=== PATIENT | male | born 1985 | race Caucasian/White ===

== ENCOUNTER 2019-09-03 20:59 | Emergency (ER) | payer OTHER, SELFPAY ==
[2019-09-03 21:02] VITALS: BP 143/83; PULSE 67; RESP 20; TEMP 36.4; O2SAT 100
--- NOTE | 2019-09-03 21:27 | ED.HA ---
HPI - Headache General Chief Complaint: Headache Stated Complaint: Headache Time Seen by Provider: 09/03/19 21:27 Source: patient and RN notes reviewed Mode of arrival: ambulatory Limitations: no limitations History of Present Illness HPI Narrative: A 34 y/o male, with a hx of migraines, presents to the ED with a constant, throbbing, bitemporal ALEXANDER beginning a couple hours ago. He reports associated photophobia and nausea. He states that he took Naproxen but denies it alleviating his symptoms. He also denies any fever, cough, chills, sore throat, rhinorrhea, or vomiting. MD elicited complaint: headache Pertinent past history: migraines Onset (ago): hour(s) (a couple) Location: temporal (MAURILIO) Quality & Timing: throbbing Exacerbating factors: light Relieving factors: nothing Associated symptoms: nausea and photophobia Treatments prior to arrival: other (Naproxen) Related Data Home Medications Medication Instructions Recorded Confirmed No Home Medications 09/03/19 09/03/19 Allergies Allergy/AdvReac Type Severity Reaction Status Date / Time Penicillins Allergy Unknown Stopped Verified 09/03/19 21:04 Breathing Review of Systems Review of Systems: All systems reviewed & are unremarkable except as noted in HPI and below Constitutional: Constitutional: Denies chills and Denies fever(s) Eyes: Eyes: Reports photophobia ENT: Denies nasal discharge and Denies sore throat Respiratory: Respiratory: Denies cough Gastrointestinal: Gastrointestinal: Reports nausea and Denies vomiting Neurologic: Reports headache(s) (Bitemporal) PMFSH Past Medical History Medical History Asthma Hernia Hx of migraines Surgical History Surgical History H/O hernia repair Social History Social History (Updated 09/03/19 @ 21:38 by Adrian Marie) Smoking packs per day: 0.5 Smoking cigarettes per day: 10.0 Smoking status: Current every day smoker Tobacco type: cigarettes Gender identity (if verbalized by the patient): Male Exam Const: General: cooperative, no acute distress and alert Nutritional Appearance: well nourished Orientation/consciousness: patient oriented x3 Limitations: no limitations HENMT: Mouth: Yes lip normal and Yes moist mucous membranes Resp: Effort & Inspection: normal respiratory effort Auscultation: clear to auscultation bilaterally Cardio: Rate: regular rate Rhythm: regular rhythm GI: GI Palp: Yes Soft to palpation and No Tenderness to palpation present (GI) Auscultation: normal bowel sounds Skin: General skin exam: normal color Neuro: General: patient oriented x3 Cognition (Neuro): normal cognition Speech: normal speech Extrem: General: normal to inspection, full ROM and no clubbing, cyanosis or edema Psych: Mental Status: mental status grossly normal Affect: normal affect Attitude: cooperative Course Course Emergency Course: Patient feeling better after Benadryl and Reglan. Patient sleeping quietly. Will discharge home. Vital Signs Vital signs: Vital Signs Temperature 97.5 F L 09/03/19 21:02 Pulse Rate 67 09/03/19 21:02 Respiratory Rate 20 09/03/19 21:02 Blood Pressure 143/83 H 09/03/19 21:02 Pulse Oximetry 100 09/03/19 21:02 Temperature 97.5 F L 09/03/19 21:02 Pulse Rate 67 09/03/19 21:02 Respiratory Rate 20 09/03/19 21:02 Blood Pressure 143/83 H 09/03/19 21:02 Pulse Oximetry 100 09/03/19 21:02 Critical Care Time Critical Care Time Critical Care Time: No Discharge Plan Discharge Clinical Impression: Migraine headache Qualifiers: Migraine type: without aura Status migrainosus presence: without status migrainosus Intractability: not intractable Qualified Code(s): G43.009 - Migraine without aura, not intractable, without status migrainosus Patient Disposition: Home, Self-Care Condition: Stable Instructions: Migraine Headache (ED)
[2019-09-03] MEDS: METOCLOPRAMIDE HCL INJ 10 MG/2 ML VIAL IV PUSH (21:48)
[2019-09-03] MEDS: SODIUM CHLORIDE 0.9% IV 50 ML 999 ML (21:48)
[2019-09-03 23:53] VITALS: BP 132/80; PULSE 82; RESP 18; O2SAT 97
== END 2019-09-03 23:55 | disposition home or self-care (01) ==
PROVIDERS: Emergency Provider Emergency Medicine; PCP Internal Medicine Infectious Disease
DX: J45.909 Unspecified asthma, uncomplicated (principal); F17.210 Nicotine dependence, cigarettes, uncomplicated; G43.009 Migraine without aura, not intractable, without status migrainosus
CPT/HCPCS: 96374; 96375; 99284; J1200; J2765

== ENCOUNTER 2019-10-26 22:12 | Emergency (ER) | payer OTHER, SELFPAY ==
[2019-10-26 22:15] VITALS: BP 137/87; PULSE 78; RESP 19; TEMP 36.1; O2SAT 100
--- NOTE | 2019-10-26 23:13 | ED.HA ---
HPI - Headache General Chief Complaint: Headache Stated Complaint: headache Time Seen by Provider: 10/26/19 22:49 Source: patient Mode of arrival: ambulatory Limitations: no limitations History of Present Illness HPI Narrative: This patient is a 34 yo male who presents for evaluation of right frontal headache. Patient states he has long history of migraine headaches and today his headache is similar to previous. He reports he developed right frontal throbbing headache at 1 pm today. He has taken naproxen for his pain without relief. His headache is worsen with light. He denies associated nausea, vomiting, fever, cold symptoms. He was seen her in August for a similar headache. MD elicited complaint: headache Related Data Home Medications Medication Instructions Recorded Confirmed No Home Medications 09/03/19 09/03/19 Allergies Allergy/AdvReac Type Severity Reaction Status Date / Time Penicillins Allergy Unknown Stopped Verified 10/26/19 22:23 Breathing Review of Systems Review of Systems: All systems reviewed & are unremarkable except as noted in HPI and below Constitutional: Constitutional: Denies chills, Denies fever(s) and Denies weakness Eyes: Eyes: Reports photophobia ENT: Denies nasal congestion and Denies sore throat Gastrointestinal: Gastrointestinal: Denies nausea and Denies vomiting Neurologic: Reports headache(s) [facility] Past Medical History Medical History Asthma Hernia Hx of migraines Surgical History Surgical History H/O hernia repair Social History Social History (Updated 10/26/19 @ 23:13 by Hattie Contreras MD) Smoking packs per day: 0.5 Smoking cigarettes per day: 10.0 Smoking status: Current every day smoker Tobacco type: cigarettes Substance use type: marijuana Gender identity (if verbalized by the patient): Male Exam Const: General: alert Orientation/consciousness: patient oriented x3 HENMT: Head: atraumatic Ears: hearing grossly normal bilaterally, external ears normal and TM's normal bilaterally General nose exam: Normal external nose present and Normal nares present Face and sinus: normal facial exam, sinuses nontender and face symmetric Mouth: Yes Normal oral and palatal mucosa present, Yes lip normal and Yes tongue normal Throat: posterior oropharynx normal Eyes: Conjunctivae: conjunctivae normal EOM: EOMs intact bilaterally Other: pinpoint pupils Chest: Chest palpation & inspection: normal inspection of the chest Resp: Effort & Inspection: normal respiratory effort Auscultation: clear to auscultation bilaterally Cardio: Rate: regular rate Rhythm: regular rhythm Heart sounds: no murmurs Skin: General skin exam: normal color Rashes: no rashes Neuro: General: patient oriented x3 and moves all extremities Course Reevaluation(s) Reevaluation #1: Patient is sleeping . He was easily arousable and he states that his headache has gone away. Date: 10/27/19 Time: 00:47 Vital Signs Vital signs: Vital Signs Temperature 97.0 F L 10/26/19 22:15 Pulse Rate 78 10/26/19 22:15 Respiratory Rate 19 10/26/19 22:15 Blood Pressure 137/87 10/26/19 22:15 Pulse Oximetry 100 10/26/19 22:15 Temperature 97.2 F L 10/27/19 01:13 Pulse Rate 67 10/27/19 01:13 Respiratory Rate 16 10/27/19 01:13 Blood Pressure 143/71 H 10/27/19 01:13 Pulse Oximetry 97 10/27/19 01:13 MDM - Headache Lab Data Labs: Lab Results 10/27/19 Range/Units 00:31 Urine Opiates Screen Negative (Negative) Urine Methadone Screen Negative (Negative) Ur Barbiturates Screen Negative (Negative) Ur Phencyclidine Scrn Negative (Negative) Ur Amphetamine Screen Positive A (Negative) U Benzodiazepines Scrn Negative (Negative) Urine Cocaine Screen Negative (Negative) U Cannabinoids Screen Positive A (Nega
[2019-10-26] MEDS: METOCLOPRAMIDE HCL INJ 10 MG/2 ML VIAL IV PUSH (23:23)
[2019-10-26] MEDS: LACTATED RINGERS 1,000 ML 999 ML IV CONT (23:28)
[2019-10-26 23:42] VITALS: BP 129/69; PULSE 65; RESP 14; O2SAT 98
[2019-10-26 23:58] VITALS: TEMP 36.1
[2019-10-27 00:56] LABS: Barbiturate Screen Urine Negative (Negative); Benzodiazepines Screen Urine Negative (Negative)
[2019-10-27 01:04] LABS: Cannabinoid Screen Urine Positive (Negative); Cocaine Screen Urine Negative (Negative); Methadone Screen Urine Negative (Negative); Opiate Screen Urine Negative (Negative); Phencyclidine Screen Urine Negative (Negative)
[2019-10-27 01:13] VITALS: BP 143/71; PULSE 67; RESP 16; TEMP 36.2; O2SAT 97
[2019-10-27 01:25] LABS: Amphetamine Screen Urine Positive (Negative)
== END 2019-10-27 01:15 | disposition home or self-care (01) ==
PROVIDERS: Emergency Provider General Practice; PCP Internal Medicine Infectious Disease
DX: G44.209 Tension-type headache, unspecified, not intractable (principal); F17.210 Nicotine dependence, cigarettes, uncomplicated
CPT/HCPCS: 80307; 96361; 96374; 96375; 99284; J0131; J1200; J2765; J7120

== ENCOUNTER 2019-11-18 19:02 | Emergency (ER) | payer OTHER, SELFPAY ==
[2019-11-18 19:16] VITALS: BP 123/67; PULSE 86; RESP 16; TEMP 36.6
--- NOTE | 2019-11-18 19:25 | ED.DENTAL ---
HPI - Dental/Oral General Chief complaint: Dental/Oral Stated complaint: tooth pain Time Seen by Provider: 11/18/19 19:18 Source: patient and RN notes reviewed Mode of arrival: ambulatory Limitations: no limitations History of Present Illness HPI Narrative: Patient presents today complaining of right lower dental pain and gum swelling since yesterday. Reports this tooth broke off at the gumline a few months ago when he missed his last appointment with his dentist in August and has not rescheduled. Currently rates his pain 03/01 and has been taking naproxen with some relief. MD Complaint: tooth pain Related Data Allergies Allergy/AdvReac Type Severity Reaction Status Date / Time Penicillins Allergy Unknown Stopped Verified 10/26/19 22:23 Breathing Review of Systems Review of Systems: Narrative: CONSTITUTIONAL: Denies body aches, fever, chills, or sweats. EYES: Denies visual changes, redness, or discharge. ENT: Denies rhinorrhea, congestion, sore throat, or otalgia.+ tooth pain CARDIOVASCULAR: Denies chest pain, palpitations, or edema. RESPIRATORY: Denies cough or dyspnea. GASTROINTESTINAL: Denies abdominal pain, nausea, vomiting, or diarrhea. GENITOURINARY: Denies dysuria or hematuria. SKIN: Denies rash, itching, or wounds. MUSCULOSKELETAL: Denies back pain, joint pain, or myalgia. NEUROLOGIC: Denies headache, numbness, tingling, or weakness. PSYCH: Denies depression or anxiety. [facility] Social History Social History (Updated 10/26/19 @ 23:13 by Hattie Contreras MD) Smoking packs per day: 0.5 Smoking cigarettes per day: 10.0 Smoking status: Current every day smoker Tobacco type: cigarettes Substance use type: marijuana Gender identity (if verbalized by the patient): Male Exam Narrative: Exam Narrative: GENERAL: Well-appearing, well-nourished, and in no acute distress. HEAD: Normocephalic, atraumatic. EYES: EOMI. No redness or drainage. Conjunctivae normal. ENT: Mucous membranes pink and moist. Tooth #29 is broken off at the gumline and brown in color. Gross dental decay throughout. Mild swelling and erythema of the lower gingiva. Patient also has a ~4mm pendulous growth to the oral mucosa that is somewhat firm. States it has been present for a while . Instructed to have this evaluated by dentist as well. NECK: Normal AROM. CHEST: No respiratory distress. EXTREMITIES: Normal range of motion. No edema. SKIN: Warm, dry, no rash. Capillary refill normal. Normal skin turgor. NEURO: No focal deficits. Alert and oriented x3. Gait steady. PSYCH: Normal affect. No signs of depression or anxiety. Course Vital Signs Vital signs: Vital Signs Temperature 97.9 F 11/18/19 19:16 Pulse Rate 86 11/18/19 19:16 Respiratory Rate 16 11/18/19 19:16 Blood Pressure 123/67 11/18/19 19:16 Temperature 97.9 F 11/18/19 19:16 Pulse Rate 86 11/18/19 19:16 Respiratory Rate 16 11/18/19 19:16 Blood Pressure 123/67 11/18/19 19:16 Reviewed. Pt has been instructed to follow up with his PCP regarding his elevated blood pressure today. MDM - Dental/Oral Differential Diagnosis Differential diagnosis: Likely gingival abscess, dental caries, toothache, dental abscess and fracture of tooth Critical Care Time Critical Care Time Critical Care Time: No Discharge Plan Discharge Clinical Impression: Dental infection Patient Disposition: Home, Self-Care Condition: Stable Instructions: Antibiotic Form, Dental Abscess (ED) Additional Instructions: Take the clindamycin as prescribed until gone. Continue naproxen for pain. Follow-up with your dentist as soon as possible. Your blood pressure was elevated above 120/80 today at Urgent Care. This puts you above the threshold for follow up. Please schedule a followup visit with your personal physician as soon as possible, for further evaluation and treatment. Even blood pressure exceeding 120/80 may indicate pre-hypertension. Tung
== END 2019-11-18 19:34 | disposition home or self-care (01) ==
PROVIDERS: Emergency Provider Nurse Practitioner
DX: K04.7 Periapical abscess without sinus (principal); F17.210 Nicotine dependence, cigarettes, uncomplicated; R03.0 Elevated blood-pressure reading, without diagnosis of hypertension
CPT/HCPCS: 99213; G0463

== ENCOUNTER 2019-11-20 14:36 | Emergency (ER) | payer OTHER, SELFPAY ==
[2019-11-20 14:38] VITALS: BP 130/64; PULSE 97; RESP 18; TEMP 36.4; O2SAT 98
--- NOTE | 2019-11-20 14:45 | PC.NURSE ---
Pt has dental abscess to R lower jaw x 2 days. Pt went to UC and got abt but states he feels like the pain and abscess are not improving. Pt states he has body aches and abd pain. Pt is A&Ox4. Pt has swelling to R lower jaw.
--- NOTE | 2019-11-20 14:55 | ED.DENTAL ---
HPI - Dental/Oral General Chief complaint: Dental/Oral <Nain Christie PA-C - Last Filed: 11/20/19 15:01> Stated complaint: Tooth abscess <Nain Christie PA-C - Last Filed: 11/20/19 15:01> Time Seen by Provider: 11/20/19 14:40 <Nain Christie PA-C - Last Filed: 11/20/19 15:01> Source: patient <Nain Christie PA-C - Last Filed: 11/20/19 15:01> Mode of arrival: ambulatory <Nain Christie PA-C - Last Filed: 11/20/19 15:01> Limitations: no limitations <Nain Christie PA-C - Last Filed: 11/20/19 15:01> History of Present Illness HPI Narrative: Patient is a 34-year-old male who presents with dental pain and right-sided facial swelling patient notes gross dental decay has tried [id number] medications with minimal improvement patient denies any fever chills nausea vomiting or URI symptoms and is otherwise resting comfortably in the room in no distress upon arrival <Nain Christie PA-C - Last Filed: 11/20/19 15:01> Related Data Allergies/adverse reactions: Allergies Allergy/AdvReac Type Severity Reaction Status Date / Time Penicillins Allergy Unknown Stopped Verified 10/26/19 22:23 Breathing <Nain Christie PA-C - Last Filed: 11/20/19 15:01> Review of Systems Review of Systems: All systems reviewed & are unremarkable except as noted in HPI and below <Nain Christie PA-C - Last Filed: 11/20/19 15:01> [facility] Past Medical History Medical History: Medical History Asthma Hernia Hx of migraines <Nain Christie PA-C - Last Filed: 11/20/19 15:01> Surgical History Surgical History: Surgical History H/O hernia repair <Nain Christie PA-C - Last Filed: 11/20/19 15:01> Social History Social History: Social History Smoking packs per day: 0.5 Smoking cigarettes per day: 10.0 Smoking status: Current every day smoker Tobacco type: cigarettes Substance use type: marijuana Gender identity (if verbalized by the patient): Male <Nain Christie PA-C - Last Filed: 11/20/19 15:01> Exam Narrative: Exam Narrative: GENERAL: Well-appearing, well-nourished, and in no acute distress. HEAD: Normocephalic, atraumatic. EYES: PERRLA and EOMI. ENT: Nares clear, no rhinorrhea or epistaxis. Mucous membranes moist. Oropharynx without tonsillar hypertrophy exudate or other lesions. Gross dental decay. Slight swelling and tenderness along the right lateral gumline NECK: Supple. No adenopathy or masses. EXTREMITIES: Normal range of motion. No edema. SKIN: Warm, dry, no rash. NEURO: No focal deficits. Alert and oriented x3. PSYCH: Normal mood and affect. <Nain Christie PA-C - Last Filed: 11/20/19 15:01> Course Course Emergency Course: Patient in the room in no distress aware of case findings treatment plan and diagnosis agreeing to follow-up as directed with dentistry provided with reasons to return <Nain Christie PA-C - Last Filed: 11/20/19 15:01> Vital Signs Vital signs: Vital Signs Temperature 36.4 C 11/20/19 14:38 Pulse Rate 97 11/20/19 14:38 Respiratory Rate 18 11/20/19 14:38 Blood Pressure 130/64 11/20/19 14:38 Pulse Oximetry 98 11/20/19 14:38 Temperature 36.4 C 11/20/19 14:38 Pulse Rate 97 11/20/19 14:38 Respiratory Rate 18 11/20/19 14:38 Blood Pressure 130/64 11/20/19 14:38 Pulse Oximetry 98 11/20/19 14:38 <Nain Christie PA-C - Last Filed: 11/20/19 15:01> Vital Signs Temperature 36.4 C 11/20/19 14:38 Pulse Rate 97 11/20/19 14:38 Respiratory Rate 18 11/20/19 14:38 Blood Pressure 130/64 11/20/19 14:38 Pulse Oximetry 98 11/20/19 14:38 Temperature 36.4 C 11/20/19 14:38 Pulse Rate 97 11/20/19 14:38 Respiratory Rate 18 11/20/19 14:38 Blood Pressure
[2019-11-20] MEDS: IBUPROFEN 600 MG TABLET PO (15:23)
== END 2019-11-20 15:25 | disposition home or self-care (01) ==
PROVIDERS: Emergency Provider Emergency Medicine; PCP Internal Medicine Infectious Disease
DX: K04.7 Periapical abscess without sinus (principal); J45.909 Unspecified asthma, uncomplicated; F17.210 Nicotine dependence, cigarettes, uncomplicated
CPT/HCPCS: 41800; 99283; A9270

== ENCOUNTER 2019-11-24 19:30 | Emergency (ER) | payer OTHER, SELFPAY ==
[2019-11-24 19:32] VITALS: BP 131/76; PULSE 58; RESP 16; TEMP 36.3; O2SAT 99
--- NOTE | 2019-11-24 19:52 | ED.DENTAL ---
HPI - Dental/Oral General Chief complaint: Dental/Oral Stated complaint: i need my abcess tooth popped Time Seen by Provider: 11/24/19 19:45 History of Present Illness HPI Narrative: Patient presents emergency department from home for dental pain. Patient states that symptoms began approximately 1 week ago. He states he has a carious tooth in the right lower jaw patient was seen initially at the urgent care on 11/17 and placed on clindamycin 300 every 6 hours and came to the emergency department then on 11/20/2019 and was switched to clindamycin 150 mg 3 times a day. Patient states he is scheduled to see a dentist on November 28. He states he continues to have pain noted mild swelling in the jaw in this region. He denies any new new loose or avulsed teeth denies any fevers or chills headaches rhinorrhea sore throat or any other symptoms Related Data Allergies Allergy/AdvReac Type Severity Reaction Status Date / Time Penicillins Allergy Unknown Stopped Verified 11/24/19 19:35 Breathing Review of Systems Review of Systems: Narrative: Gen.: Denies fevers or chills HEENT: See HPI Neuro: Denies headache Skin: Denies rash Endo: Denies DM PMFSH Past Medical History Medical History Asthma Hernia Hx of migraines Social History Social History Smoking packs per day: 0.5 Smoking cigarettes per day: 10.0 Smoking status: Current every day smoker Tobacco type: cigarettes Substance use type: marijuana Gender identity (if verbalized by the patient): Female Exam Narrative: Exam Narrative: APPEARANCE: No acute distress, nontoxic, resting in bed HEENT: Normocephalic, atraumatic, TMs clear bilaterally, nares patent, oral mucosa moist, airway patent, tooth #28 is carious down to the gumline and tender to palpation mild erythema of the gum with no fluctuance no swelling of the jaw in this region overlying erythema floor the mouth is soft, no erythema the submandibular region Neck: Supple small right anterior lymphadenopathy in the region of the tooth no other lymphadenopathy noted RESPIRATORY: No respiratory distress MUSCULOSKELETAl: Moves all extremities. NEURO: Awake and alert. Following commands, speech normal, no focal deficits SKIN:: Warm, dry. Normal Color PSYCHIATRIC: Normal affect/mood Course Course Emergency Course: Discussed with patient results of workup and diagnosis. Discussed need for follow-up with primary care, proper use of medication, and reasons to return to the emergency department. Patient understands and agrees to current treatment plan Vital Signs Vital signs: Vital Signs Temperature 97.3 F L 11/24/19 19:32 Pulse Rate 58 L 11/24/19 19:32 Respiratory Rate 16 11/24/19 19:32 Blood Pressure 131/76 11/24/19 19:32 Pulse Oximetry 99 11/24/19 19:32 Temperature 97.3 F L 11/24/19 19:32 Pulse Rate 58 L 11/24/19 19:32 Respiratory Rate 16 11/24/19 19:32 Blood Pressure 131/76 11/24/19 19:32 Pulse Oximetry 99 11/24/19 19:32 Discharge Plan Discharge Clinical Impression: Dental abscess Patient Disposition: Home, Self-Care Condition: Stable Instructions: Antibiotic Form, Dental Abscess (ED) Prescriptions: New clindamycin HCl 300 mg capsule 300 mg PO Q6H Qty: 28 RF: 0 No Action clindamycin HCl 300 mg capsule 300 mg PO Q6H 10 Days Qty: 40 RF: 0 clindamycin HCl 150 mg capsule 150 mg PO Q8H 10 Days Qty: 30 RF: 0 chlorhexidine gluconate [Peridex] 0.12 % mouthwash 15 ml BUCCAL BID Qty: 1500 RF: 0 ibuprofen [IBU] 600 mg tablet 600 mg PO QID PRN (Reason: fever or pain) Qty: 7 RF: 0 Follow-up/Referrals: [facility] [Outside] - 1 Day [facility] [Outside] - 1 Day KourtneyWanda M.D. [Primary Care Provider] - Stand Alone Forms: Work/School Release IP Time of Disposition: 20:01
[2019-11-24] MEDS: CLINDAMYCIN HCL 150 MG CAP 300 MG PO (20:07)
== END 2019-11-24 20:09 | disposition home or self-care (01) ==
LOC: ANHED 19:55
PROVIDERS: Emergency Provider Emergency Medicine; PCP Internal Medicine Infectious Disease
DX: K04.7 Periapical abscess without sinus (principal); J45.909 Unspecified asthma, uncomplicated; F17.210 Nicotine dependence, cigarettes, uncomplicated
CPT/HCPCS: 99283; A9270

== ENCOUNTER 2020-07-24 21:56 | Emergency (ER) | payer OTHER, SELFPAY ==
[2020-07-24 22:00] VITALS: BP 139/84; PULSE 66; RESP 14; TEMP 36.3; O2SAT 98
--- NOTE | 2020-07-24 22:14 | PC.NURSE ---
patient brought back to ED room 6 with c/o migraine ALEXANDER. see initial note. no change in condition since triage done. resting on stretcher. lights off. SL inserted. waiting for further orders from .
--- NOTE | 2020-07-24 22:44 | ED.GENADULT ---
HPI - General Adult General Chief complaint: Headache Stated complaint: headache Time Seen by Provider: 07/24/20 22:12 Source: patient History of Present Illness HPI narrative: Patient is a 35 y/o male complaining of left temporal headache starting 8-9 hours ago. He describes his headache as a pressure and rates it as 10/10. He states that light makes his headache worse. He took Ibuprofen which did did not help. He has some nausea, but no vomiting. He has no focal weakness or numbness. Related Data Allergies Allergy/AdvReac Type Severity Reaction Status Date / Time Penicillins Allergy Unknown Stopped Verified 07/24/20 22:02 Breathing Review of Systems Constitutional: Constitutional: Denies chills, Denies fever(s), Reports headache(s) and Denies weakness Eyes: Eyes: Denies blurry vision ENT: Reports headache(s) and Denies neck pain Cardiovascular: Cardiovascular: Denies chest pain and Denies dyspnea Respiratory: Respiratory: Denies cough and Denies dyspnea Gastrointestinal: Gastrointestinal: Denies abdominal pain, Denies diarrhea, Reports nausea and Denies vomiting Genitourinary: Genitourinary: Denies hematuria and Denies dysuria Musculoskeletal: Musculoskeletal: Denies back pain and Denies neck pain Neurologic: Reports headache(s) and Denies weakness PMFSH Past Medical History Medical History (Updated 07/24/20 @ 23:59 by Rosa Reyes MD) Asthma Hernia Hx of migraines Surgical History Surgical History H/O hernia repair Social History Social History Smoking packs per day: 0.5 Smoking cigarettes per day: 10.0 Smoking status: Current every day smoker Tobacco type: cigarettes Substance use type: marijuana Gender identity (if verbalized by the patient): Male Exam Const: General: no acute distress and well developed Orientation/consciousness: oriented to person, oriented to place, oriented to time and patient oriented x3 HENMT: Head: normocephalic Ears: external ears normal General nose exam: Normal external nose present Eyes: General: appearance normal, both eyes and all related structures Conjunctivae: conjunctivae normal Neck: Neck: normal visual inspection and full ROM Chest: Chest palpation & inspection: normal inspection of the chest and no tenderness Resp: Effort & Inspection: normal respiratory effort Auscultation: clear to auscultation bilaterally Cardio: Rate: regular rate Rhythm: regular rhythm GI: GI Palp: No abdominal tenderness and Yes Soft to palpation Skin: General skin exam: normal color and turgor normal Neuro: General: oriented to person, oriented to place, oriented to time and patient oriented x3 Cranial nerves: Yes CN's II-XII intact bilaterally Cognition (Neuro): normal cognition Speech: normal speech Motor exam (neuro): 5/5 motor strength present throughout Sensory Exam: normal sensation Coordination: [id number] test normal and [id number] test normal Extrem: General: normal to inspection, full ROM and no pedal edema Psych: Appearance: grossly normal Mental Status: mental status grossly normal Affect: normal affect Course Reevaluation(s) Reevaluation #1: Rechecked. Patient feels better and rates his pain as 3/10. Date: 07/24/20 Time: 23:58 Vital Signs Vital signs: Vital Signs Temperature 36.3 C L 07/24/20 22:00 Pulse Rate 66 07/24/20 22:00 Respiratory Rate 14 07/24/20 22:00 Blood Pressure 139/84 07/24/20 22:00 Pulse Oximetry 98 07/24/20 22:00 Temperature 36.3 C L 07/24/20 22:00 Pulse Rate 68 07/24/20 23:48 Respiratory Rate 18 07/24/20 23:48 Blood Pressure 106/62 07/24/20 23:48 Pulse Oximetry 98 07/24/20 23:48 Medical Decision Making Vital Signs Vital Signs: Vital Signs Temperature 36.3 C L 07/24/20 22:00 Pulse Rate 66 07/24/20 22:00 Respiratory Rate 14 07/24/20 22:00 Blood P
[2020-07-24] MEDS: diphenhydrAMINE HCl INJ 50 MG/ML VIAL 25 MG IV PUSH (22:50)
[2020-07-24] MEDS: KETOROLAC 30 MG/ML VIAL (*BKC) IV PUSH (22:51)
[2020-07-24] MEDS: SODIUM CHLORIDE 0.9% IV 1,000 ML 999 ML IV CONT (22:51)
[2020-07-24] MEDS: METOCLOPRAMIDE HCL 10 MG TABLET PO (22:51)
[2020-07-24 22:59] LABS: Basophils Absolute Auto 0.1 K/mm3 (0.0-0.1); Basophils Percent Auto 0.8 % (0.2-1.2); Eosinophils Absolute Auto 0.5 K/mm3 (0-0.3); Eosinophils Percent Auto 4.4 % (0-4.4); Hematocrit 42.6 % (42.0-52.0); Hemoglobin 14.3 g/dL (14.0-18.0); Immature Granulocyte Absolute 0.05 K/mm3 (0.00-0.031); Immature Granulocyte Percent A 0.5 % (0-0.5); Immature Platelet Fraction Pct 8.5 % (0.9-11.2); Lymphocytes Absolute Auto 1.08 K/mm3 (0.9-3.2); Lymphocytes Percent Auto 9.8 % (18.3-44.2); Mean Corpuscular HGB Conc 33.6 g/dl (32-36); Mean Corpuscular Hemoglobin 31.8 pg (26-34); Mean Corpuscular Volume 94.7 fl (80-100); Mean Platelet Volume 11.4 fl (7.4-10.4); Monocytes Absolute Auto 0.5 K/mm3 (0.1-0.6); Monocytes Percent Auto 4.2 % (2.6-8.5); Neutrophils Absolute Auto 8.9 K/mm3 (1.3-6.7); Neutrophils Percent Auto 80.3 % (45.5-73.1); Platelet Count Result 218 k/mm3 (150-375); Red Cell Distribution Width 12.2 % (11.5-14.5); White Blood Count 11.1 K/mm3 (4.5-10.0)
[2020-07-24] MEDS: METOCLOPRAMIDE HCL 10 MG TABLET (23:02)
[2020-07-24 23:48] VITALS: BP 106/62; PULSE 68; RESP 18; O2SAT 98
[2020-07-24 23:49] LABS: Anion Gap 4 mmol/L (8-16); Blood Urea Nitrogen 13 mg/dL (9-20); Carbon Dioxide 29 mmol/L (22-30); Chloride 104 mmol/L (98-107); Estimated CRCL calculation 111 ml/min; Estimated Glomerular Filt Rate > 60; Glucose 147 mg/dL (75-110); Potassium 4.9 mmol/L (3.4-5.0); Sodium 137 mmol/L (137-145)
== END 2020-07-25 00:11 | disposition home or self-care (01) ==
PROVIDERS: Emergency Provider Emergency Medicine; PCP Internal Medicine Infectious Disease
DX: G43.909 Migraine, unspecified, not intractable, without status migrainosus (principal); J45.909 Unspecified asthma, uncomplicated; F17.210 Nicotine dependence, cigarettes, uncomplicated
CPT/HCPCS: 36415; 80048; 85025; 85055; 96361; 96374; 96375; 99284; A9270; J1200; J1885; J7030

== ENCOUNTER 2020-08-15 09:39 | Emergency (ER) | payer OTHER, SELFPAY ==
[2020-08-15 09:46] VITALS: BP 130/86; PULSE 88; RESP 18; TEMP 37.2; O2SAT 100
--- NOTE | 2020-08-15 10:09 | ED.GENADULT ---
HPI - General Adult General Chief complaint: Headache Stated complaint: Headache Time Seen by Provider: 08/15/20 09:44 Source: patient Mode of arrival: ambulatory Limitations: no limitations History of Present Illness HPI narrative: Patient presents to the emergency department with chief complaint of pain to his left mosque that began this morning. Patient states he took [id number] ibuprofen without relief of his symptoms. Patient states that he does typically suffer from migraines at present in the temporal regions along with nausea and photophobia which are the same as he is experiencing now. Patient denies any head trauma any changes in caffeine usage, neurological deficits, chest pain, shortness of breath or any other abnormal symptoms. Patient states that this is typical of his migraines and is nowhere near the worst of his life however he desires relief. Related Data Home Medications Medication Instructions Recorded Confirmed No Home Medications 08/15/20 08/15/20 Allergies Allergy/AdvReac Type Severity Reaction Status Date / Time Penicillins Allergy Unknown Unknown Verified 08/15/20 09:52 Review of Systems Review of Systems: Narrative: CONSTITUTIONAL: Denies fever, chills, or sweats. EYES: Denies visual changes, redness, or discharge. ENT: Denies rhinorrhea, congestion, sore throat, or otalgia. CARDIOVASCULAR: Denies chest pain, palpitations, or edema. RESPIRATORY: Denies cough or dyspnea. GASTROINTESTINAL: Reports nausea denies abdominal pain, vomiting, or diarrhea. GENITOURINARY: Denies dysuria or hematuria. SKIN: Denies rash or itching. MUSCULOSKELETAL: Denies back pain, joint pain, or myalgia. NEUROLOGIC: Reports headache and photophobia denies numbness, dizziness, or weakness. PSYCHIATRIC: Denies anxiety or depression. [facility] Past Medical History Medical History (Updated 08/15/20 @ 12:03 by Selena Pérez PA-C) Asthma Hernia Hx of migraines Surgical History Surgical History H/O hernia repair Social History Social History Smoking packs per day: 0.5 Smoking cigarettes per day: 10.0 Smoking status: Current every day smoker Tobacco type: cigarettes Substance use type: marijuana Gender identity (if verbalized by the patient): Male Exam Narrative: Exam Narrative: GENERAL: Well-appearing, well-nourished, and in no acute distress. HEAD: Normocephalic, atraumatic. EYES: PERRLA and EOMI. ENT: Nares clear, no rhinorrhea or epistaxis. Mucous membranes moist. Oropharynx without tonsillar hypertrophy exudate or other lesions. Bilateral TMs pearly sesay nonbulging CHEST: Clear to auscultation. No respiratory distress. No wheezes rales or rhonchi EXTREMITIES: Normal range of motion. No edema. SKIN: Warm, dry, no rash. NEURO: No focal deficits. Alert and oriented x3. Patient able to follow commands. No obvious visual disturbances noted. Range of motion intact in all extremities. PSYCH: Normal mood and affect. Course Vital Signs Vital signs: Vital Signs Temperature 98.9 F 08/15/20 09:46 Pulse Rate 18 L 08/15/20 09:46 Respiratory Rate 18 08/15/20 09:46 Blood Pressure 130/86 08/15/20 09:46 Pulse Oximetry 100 08/15/20 09:46 Temperature 98.9 F 08/15/20 09:46 Pulse Rate 18 L 08/15/20 09:46 Respiratory Rate 18 08/15/20 09:46 Blood Pressure 130/86 08/15/20 09:46 Pulse Oximetry 100 08/15/20 09:46 Medical Decision Making MDM Narrative Medical decision making narrative: Patient has been able to rest comfortably in his room. He states he is feeling resolved and ready to go. Still neurologically intact. Vitals and labs stable. Patient instructed to go home and rest. To follow up with PCP. Return to ER if any emergent symptoms. Patient declines work note. Vital Signs Vital Signs: Vital Signs Temperature 98.9 F 08/15/20 09:46 Pulse Rate 18 L
[2020-08-15 10:18] LABS: Basophils Absolute Auto 0.1 K/mm3 (0.0-0.1); Basophils Percent Auto 1.3 % (0.2-1.2); Eosinophils Absolute Auto 0.6 K/mm3 (0-0.3); Eosinophils Percent Auto 8.3 % (0-4.4); Hematocrit 40.7 % (42.0-52.0); Hemoglobin 13.4 g/dL (14.0-18.0); Immature Granulocyte Absolute 0.02 K/mm3 (0.00-0.031); Immature Granulocyte Percent A 0.3 % (0-0.5); Lymphocytes Absolute Auto 1.44 K/mm3 (0.9-3.2); Lymphocytes Percent Auto 18.9 % (18.3-44.2); Mean Corpuscular HGB Conc 32.9 g/dl (32-36); Mean Corpuscular Hemoglobin 31.2 pg (26-34); Mean Corpuscular Volume 94.7 fl (80-100); Mean Platelet Volume 10.2 fl (7.4-10.4); Monocytes Absolute Auto 0.5 K/mm3 (0.1-0.6); Monocytes Percent Auto 6.4 % (2.6-8.5); Neutrophils Absolute Auto 4.9 K/mm3 (1.3-6.7); Neutrophils Percent Auto 64.8 % (45.5-73.1); Platelet Count Result 253 k/mm3 (150-375); Red Cell Distribution Width 12.1 % (11.5-14.5); White Blood Count 7.6 K/mm3 (4.5-10.0)
[2020-08-15 10:36] LABS: Alanine Aminotransferase 18 U/L (4-50); Albumin Level 3.8 g/dL (3.5-5.1); Alkaline Phosphatase 54 U/L (38-126); Anion Gap 5 mmol/L (8-16); Aspartate Amino Transferase 21 U/L (17-59); Bilirubin,Total 0.3 mg/dL (0.2-1.3); Blood Urea Nitrogen 13 mg/dL (9-20); Calcium 8.8 mg/dL (8.4-10.2); Carbon Dioxide 30 mmol/L (22-30); Chloride 105 mmol/L (98-107); Estimated CRCL calculation 99 ml/min; Estimated Glomerular Filt Rate > 60; Glucose 110 mg/dL (75-110); Sodium 140 mmol/L (137-145)
[2020-08-15] MEDS: KETOROLAC 15 MG/ML VIAL (*BKC) IV PUSH (10:46)
[2020-08-15] MEDS: SODIUM CHLORIDE 0.9% IV 1,000 ML 999 ML IV CONT (10:46)
[2020-08-15] MEDS: diphenhydrAMINE HCl INJ 50 MG/ML VIAL 25 MG IV PUSH (10:47)
[2020-08-15] MEDS: DEXAMETHASONE SOD PHOS INJ 4 MG/ML VIAL 10 MG IV PUSH (10:49)
--- NOTE | 2020-08-15 11:15 | PC.NURSE ---
Report to CARMINA Stephens, to continue care.
[2020-08-15 12:27] VITALS: BP 132/78; PULSE 76; RESP 18; O2SAT 99
== END 2020-08-15 12:36 | disposition home or self-care (01) ==
PROVIDERS: Physician Assistant; Emergency Provider Emergency Medicine; PCP Internal Medicine Infectious Disease
DX: R51.9 Headache, unspecified (principal); F17.210 Nicotine dependence, cigarettes, uncomplicated; J45.909 Unspecified asthma, uncomplicated
CPT/HCPCS: 36415; 80053; 85025; 96361; 96374; 96375; 99284; J1100; J1200; J1885; J7030

== ENCOUNTER 2020-08-22 04:15 | Emergency (ER) | payer OTHER, SELFPAY ==
[2020-08-22 04:19] VITALS: BP 140/65; PULSE 73; RESP 20; TEMP 36.7; O2SAT 98
--- NOTE | 2020-08-22 04:31 | ED.HA ---
HPI - Headache General Chief Complaint: Headache Stated Complaint: Migraine Time Seen by Provider: 08/22/20 04:29 Source: patient Mode of arrival: ambulatory Limitations: no limitations History of Present Illness HPI Narrative: Patient is a 35-year-old male complaining of migraine headache, generalized, 7 out of 10, throbbing, nonradiating started yesterday. Patient states that he has a history of migraine and this is his typical migraine headache. Patient was seen here last week for the same complaints. Patient denies any speech or visual disturbance, weakness, numbness, unsteady gait, neck stiffness or fever. Patient denies any nausea or vomiting. Related Data Home Medications Medication Instructions Recorded Confirmed No Home Medications 08/15/20 08/15/20 Allergies Allergy/AdvReac Type Severity Reaction Status Date / Time Penicillins Allergy Unknown Unknown Verified 08/15/20 09:52 Review of Systems Review of Systems: All systems reviewed & are unremarkable except as noted in HPI and below Constitutional: Constitutional: Denies body ache(s), Denies chills, Denies excessive sweating, Denies fatigue, Denies fever(s), Denies headache(s), Denies lethargy, Denies malaise, Denies weakness and Denies weight loss Eyes: Eyes: Denies blurry vision, Denies change in vision and Denies loss of vision ENT: Denies dizziness, Denies ear discharge, Denies headache(s), Denies lip swelling, Denies epistaxis, Denies nasal congestion, Denies neck pain, Denies throat swelling and Denies tongue swelling Cardiovascular: Cardiovascular: Denies chest pain, Denies chest pain at rest, Denies chest pain with activity, Denies diaphoresis, Denies rapid heart rate, Denies edema, Denies irregular heart rhythm, Denies lightheadedness, Denies palpitations, Denies dyspnea and Denies dyspnea on exertion Respiratory: Respiratory: Denies chest congestion, Denies cough, Denies hemoptysis, Denies dyspnea and Denies dyspnea on exertion Gastrointestinal: Gastrointestinal: Denies abdominal pain, Denies melena, Denies hematochezia, Denies diarrhea, Denies nausea, Denies vomiting and Denies hematemesis Musculoskeletal: Musculoskeletal: Denies abnormal gait, Denies deformity, Denies joint swelling, Denies limited range of motion, Denies neck pain and Denies numbness Neurologic: Denies Abnormal speech present, Denies abnormal gait, Denies confusion, Denies dizziness, Denies focal weakness, Denies loss of vision, Denies numbness, Denies Other visual disturbances, Denies Sensory deficit (Neuro) and Denies weakness Psychiatric: Psychiatric: Denies confusion, Denies depression, Denies auditory hallucinations, Denies homicidal ideation and Denies suicidal ideation Endocrine: Endocrine: Denies cold intolerance, Denies excessive sweating, Denies fatigue, Denies heat intolerance and Denies palpitations Hematologic/Lymphatic: Hematologic/Lymphatic: Denies easy bleeding and Denies easy bruising Allergic/Immunologic: Allergic/Immunologic: Denies lip swelling, Denies throat swelling and Denies tongue swelling PMFSH Past Medical History Medical History (Updated 08/22/20 @ 04:34 by William Hale MD) Asthma Hernia Hx of migraines Surgical History Surgical History H/O hernia repair Social History Social History Smoking packs per day: 0.5 Smoking cigarettes per day: 10.0 Smoking status: Current every day smoker Tobacco type: cigarettes Substance use type: marijuana Gender identity (if verbalized by the patient): Male Exam Const: General: cooperative, healthy appearing, comfortable, no acute distress, well developed, alert and awake; No confusion Orientation/consciousness: oriented to person, oriented to place, oriented to time, patient oriented x3 and No confusion Limitations: no limitations HENMT: Head: normal to inspection, normoce
[2020-08-22] MEDS: KETOROLAC 30 MG/ML VIAL (*BKC) IM (05:03)
[2020-08-22] MEDS: PROMETHAZINE HCL 25 MG/ML AMPUL IM (05:03)
== END 2020-08-22 06:26 | disposition home or self-care (01) ==
PROVIDERS: Emergency Provider Emergency Medicine; PCP Internal Medicine Infectious Disease
DX: G43.009 Migraine without aura, not intractable, without status migrainosus (principal); J45.909 Unspecified asthma, uncomplicated; F17.210 Nicotine dependence, cigarettes, uncomplicated
CPT/HCPCS: 96372; 99284; J1885; J2550

== ENCOUNTER 2020-09-16 20:40 | Emergency (ER) | payer OTHER, SELFPAY ==
[2020-09-16 21:05] VITALS: BP 124/71; PULSE 80; RESP 20; TEMP 36.6; O2SAT 98
--- NOTE | 2020-09-16 22:01 | ED.DENTAL ---
HPI - Dental/Oral General Chief complaint: Dental/Oral Stated complaint: Tooth pain Time Seen by Provider: 09/16/20 21:53 Source: patient Mode of arrival: ambulatory Limitations: no limitations History of Present Illness HPI Narrative: This is a 35 year old male with history of poor dentition and asthma who presents for evaluation of left upper dental pain. He states he developed pain yesterday. He reports his left cheek feels warm and he reports burning pain. He states it feels swollen. He took ibuprofen for his pain this morning, but his pain returned tonight. He denies nausea, vomiting, fever or difficulty breathing. He reports it has been several months since he has taken antibiotics. He also reports he missed his last dentist appointment so he will need to make another appointment. Location: Tooth # ([id number]) Related Data Allergies Allergy/AdvReac Type Severity Reaction Status Date / Time Penicillins Allergy Unknown Unknown Verified 08/15/20 09:52 Review of Systems Review of Systems: All systems reviewed & are unremarkable except as noted in HPI and below PMFSH Past Medical History Medical History (Updated 09/17/20 @ 00:00 by Umair Bustamante) Asthma Hernia Hx of migraines Surgical History Surgical History H/O hernia repair Social History Social History Smoking packs per day: 0.5 Smoking cigarettes per day: 10.0 Smoking status: Current every day smoker Tobacco type: cigarettes Substance use type: marijuana Gender identity (if verbalized by the patient): Male Exam Const: General: no acute distress and alert Orientation/consciousness: patient oriented x3 HENMT: Head: normocephalic and atraumatic Face and sinus: face symmetric Mouth: Yes lip normal, Yes tongue normal and Yes moist mucous membranes Teeth and gingiva: caries, poor dentition and other (no gum swelling or sign drainable abscess) Resp: Effort & Inspection: normal respiratory effort and no retractions Auscultation: clear to auscultation bilaterally Cardio: Rate: regular rate Rhythm: regular rhythm Heart sounds: no murmurs Skin: General skin exam: normal color Rashes: no rashes Neuro: General: patient oriented x3 and moves all extremities Psych: Mental Status: mental status grossly normal Affect: normal affect Course Reevaluation(s) Reevaluation #1: I discussed with patient that plan to discharge with antibiotics and he will need to follow up with dentist. Date: 09/16/20 Time: 22:06 Vital Signs Vital signs: Vital Signs Temperature 97.8 F 09/16/20 21:05 Pulse Rate 80 09/16/20 21:05 Respiratory Rate 20 09/16/20 21:05 Blood Pressure 124/71 09/16/20 21:05 Pulse Oximetry 98 09/16/20 21:05 Temperature 97.8 F 09/16/20 21:05 Pulse Rate 80 09/16/20 21:05 Respiratory Rate 20 09/16/20 21:05 Blood Pressure 124/71 09/16/20 21:05 Pulse Oximetry 98 09/16/20 21:05 Discharge Plan Discharge Clinical Impression: Dental abscess, Dental caries Patient Disposition: Home, Self-Care Condition: Stable Instructions: Antibiotic Form, Dental Abscess (ED) Additional Instructions: Please call a dentist to make an appointment. You can try [facility] at [phone] to make an appointment. Prescriptions: New clindamycin HCl 150 mg capsule 450 mg PO Q8H 10 Days Qty: 90 RF: 0 chlorhexidine gluconate 0.12 % mouthwash 15 ml buccal DAILY Qty: 1500 RF: 0 Follow-up/Referrals: Kourtney,Trina Muñoz [Primary Care Provider] - Stand Alone Forms: Work/School Release IP
[2020-09-16] MEDS: IBUPROFEN 400 MG TABLET 800 MG PO (22:40)
[2020-09-16] MEDS: CLINDAMYCIN HCL 150 MG CAP 450 MG PO (22:40)
== END 2020-09-16 22:40 | disposition home or self-care (01) ==
PROVIDERS: Emergency Provider General Practice; PCP Internal Medicine Infectious Disease
DX: K04.7 Periapical abscess without sinus (principal); K02.9 Dental caries, unspecified; J45.909 Unspecified asthma, uncomplicated; F17.210 Nicotine dependence, cigarettes, uncomplicated
CPT/HCPCS: 99283; A9270

== ENCOUNTER 2020-11-23 02:16 | Emergency (ER) | payer OTHER, SELFPAY ==
[2020-11-23 02:21] VITALS: BP 110/76; PULSE 62; RESP 18; TEMP 36.6; O2SAT 98
--- NOTE | 2020-11-23 02:59 | ED.GENADULT ---
HPI - General Adult General Chief complaint: Headache Stated complaint: headache Time Seen by Provider: 11/23/20 02:55 History of Present Illness HPI narrative: Patient is a 35-year-old gentleman who presents the emergency department with chief complaint of migraine headache. Patient reports he has history of migraines reports that he gets headaches that require visits to the emergency department reports that he started having one this morning around 3 AM. The patient states this is his typical migraine reports that is not improved by anything reports is worsened by light sound and movement. Patient states that this is his typical migraine reports that is unchanged from previous episodes. Related Data Home Medications Medication Instructions Recorded Confirmed No Home Medications 11/23/20 11/23/20 Allergies Allergy/AdvReac Type Severity Reaction Status Date / Time Penicillins Allergy Unknown Unknown Verified 11/23/20 02:24 Review of Systems Review of Systems: Narrative: A 10 system review of systems was completed on the patient and is negative except for what is stated in the HPI. Nursing and ancillary documentation was reviewed. [facility] Past Medical History Medical History (Updated 11/23/20 @ 03:01 by Roderick Short MD) Asthma Hernia Hx of migraines Surgical History Surgical History H/O hernia repair Social History Social History Smoking packs per day: 0.5 Smoking cigarettes per day: 10.0 Smoking status: Current every day smoker Tobacco type: cigarettes Substance use type: marijuana Gender identity (if verbalized by the patient): Male Exam Narrative: Exam Narrative: GENERAL: Well-appearing, well-nourished, and in no acute distress. HEAD: Normocephalic, atraumatic. EYES: PERRLA and EOMI. ENT: Nares clear, no rhinorrhea or epistaxis. Mucous membranes moist. NECK: Supple. CHEST: Clear to auscultation. No respiratory distress. HEART: Regular rate and rhythm. No murmur heard. Normal peripheral pulses. ABDOMEN: Soft, nontender, nondistended, normal active bowel sounds. EXTREMITIES: Normal range of motion. No edema. SKIN: Warm, dry, no rash. NEURO: No focal deficits. Alert and oriented x3. PSYCH: Normal mood and affect. Course Course Emergency Course: Patient is sleeping comfortably in no acute distress Vital Signs Vital signs: Vital Signs Temperature 36.6 C 11/23/20 02:21 Pulse Rate 62 11/23/20 02:21 Respiratory Rate 18 11/23/20 02:21 Blood Pressure 110/76 11/23/20 02:21 Pulse Oximetry 98 11/23/20 02:21 Temperature 36.6 C 11/23/20 02:21 Pulse Rate 62 11/23/20 02:21 Respiratory Rate 18 11/23/20 02:21 Blood Pressure 110/76 11/23/20 02:21 Pulse Oximetry 98 11/23/20 02:21 Medical Decision Making Vital Signs Vital Signs: Vital Signs Temperature 36.6 C 11/23/20 02:21 Pulse Rate 62 11/23/20 02:21 Respiratory Rate 18 11/23/20 02:21 Blood Pressure 110/76 11/23/20 02:21 Pulse Oximetry 98 11/23/20 02:21 Temperature 36.6 C 11/23/20 02:21 Pulse Rate 62 11/23/20 02:21 Respiratory Rate 18 11/23/20 02:21 Blood Pressure 110/76 11/23/20 02:21 Pulse Oximetry 98 11/23/20 02:21 Discharge Plan Discharge Clinical Impression: Migraine Qualifiers: Migraine type: unspecified Status migrainosus presence: without status migrainosus Intractability: not intractable Qualified Code(s): G43.909 - Migraine, unspecified, not intractable, without status migrainosus Headache Qualifiers: Headache type: unspecified Headache chronicity pattern: unspecified pattern Intractability: not intractable Qualified Code(s): R51.9 - Headache, unspecified Patient Disposition: Home, Self-Care Condition: Stable Instructions: Antibiotic Form, Migraine Headache (ED), Acute Headache (ED) Prescription
[2020-11-23] MEDS: KETOROLAC (*BKC) 60 MG/2 ML VIAL IM (03:19)
[2020-11-23] MEDS: PROCHLORPERAZINE EDISYLATE 10 MG/2 ML VIAL IM (03:19)
[2020-11-23] MEDS: diphenhydrAMINE HCl INJ 50 MG/ML VIAL IM (03:20)
--- NOTE | 2020-11-23 03:38 | PC.NURSE ---
pt presents to ED with complaints of headache that onset yesterday afternoon at approx 1500. Pt states she took 800mg ibuprofen with no relief. Pt complains of light sensitivity and is resting on cart in its lowest position with lights dimmed for comfort and call button and personal items within reach. Pt denies chest pain, sob, nvd, fever and chills. Pt noted to be alert and oriented x4 and in no obvious distress. Pt advised to press call button for assistance.
--- NOTE | 2020-11-23 04:01 | PC.NURSE ---
pt on cart resting and states that headache has subsided and denies all pain and discomfort at this time. Vitals are stable and pt in no obvious distress at this time.
[2020-11-23 04:02] VITALS: BP 105/56; PULSE 71; RESP 13; O2SAT 96
--- NOTE | 2020-11-23 04:12 | PC.NURSE ---
Report given to Kim. Kimball to send pt to floor.
--- NOTE | 2020-11-23 04:15 | PC.NURSE ---
Pt dc home alert, stable and in no obvious distress.
== END 2020-11-23 04:15 | disposition home or self-care (01) ==
PROVIDERS: Emergency Provider Emergency Medicine; PCP Internal Medicine Infectious Disease
DX: G43.909 Migraine, unspecified, not intractable, without status migrainosus (principal); J45.909 Unspecified asthma, uncomplicated; F17.210 Nicotine dependence, cigarettes, uncomplicated
CPT/HCPCS: 96372; 99284; J0780; J1200; J1885

== ENCOUNTER 2020-12-09 22:12 | Emergency (ER) | payer OTHER, SELFPAY ==
[2020-12-09 22:17] VITALS: BP 110/51; PULSE 89; RESP 18; TEMP 36.2; O2SAT 96
--- NOTE | 2020-12-10 00:41 | ED.GENADULT ---
HPI - General Adult General Chief complaint: Upper Respiratory Infection Stated complaint: sinus issues/body aches Time Seen by Provider: 12/10/20 00:00 History of Present Illness HPI narrative: Patient is a 35-year-old male who presents ER with sinus congestion. Ongoing for 2 to 3 days. Associate with cough. Has been taking Flonase without relief. No fevers or chills or sweats. No ear pain. No known sick contacts. No loss of smell or taste. Related Data Allergies Allergy/AdvReac Type Severity Reaction Status Date / Time Penicillins Allergy Unknown Unknown Verified 12/09/20 22:12 Review of Systems Review of Systems: All systems reviewed & are unremarkable except as noted in HPI and below Constitutional: Constitutional: Denies chills and Denies fever(s) ENT: Denies dizziness, Reports nasal congestion and Denies sore throat Cardiovascular: Cardiovascular: Denies chest pain and Denies radiating jaw, neck or arm pain Respiratory: Respiratory: Reports cough, Denies dyspnea and Denies wheezing PMFSH Past Medical History Medical History (Updated 12/10/20 @ 00:43 by Corbin Chaudhary MD) Asthma Hernia Hx of migraines Surgical History Surgical History H/O hernia repair Social History Social History Smoking packs per day: 0.5 Smoking cigarettes per day: 10.0 Smoking status: Current every day smoker Tobacco type: cigarettes Substance use type: marijuana Gender identity (if verbalized by the patient): Male Exam Narrative: Exam Narrative: GENERAL: Well-appearing, well-nourished, and in no acute distress. HEAD: Normocephalic, atraumatic. ENT: Mucous membranes moist. Mild left maxillary sinus tenderness. Normal posterior oropharynx without uvular edema or tonsillar exudate/hypertrophy. NECK: Supple. CHEST: Clear to auscultation. No respiratory distress. HEART: Regular rate and rhythm. Normal peripheral pulses. EXTREMITIES: Normal range of motion. No edema. NEURO: Alert and oriented x3. PSYCH: Normal mood and affect. Course Course Emergency Course: Discussed treatment plan. Discharge home. Vital Signs Vital signs: Vital Signs Temperature 97.2 F L 12/09/20 22:17 Pulse Rate 89 12/09/20 22:17 Respiratory Rate 18 12/09/20 22:17 Blood Pressure 110/51 L 12/09/20 22:17 Pulse Oximetry 96 12/09/20 22:17 Temperature 97.2 F L 12/09/20 22:17 Pulse Rate 89 12/09/20 22:17 Respiratory Rate 18 12/09/20 22:17 Blood Pressure 110/51 L 12/09/20 22:17 Pulse Oximetry 96 12/09/20 22:17 Medical Decision Making Vital Signs Vital Signs: Vital Signs Temperature 97.2 F L 12/09/20 22:17 Pulse Rate 89 12/09/20 22:17 Respiratory Rate 18 12/09/20 22:17 Blood Pressure 110/51 L 12/09/20 22:17 Pulse Oximetry 96 12/09/20 22:17 Temperature 97.2 F L 12/09/20 22:17 Pulse Rate 89 12/09/20 22:17 Respiratory Rate 18 12/09/20 22:17 Blood Pressure 110/51 L 12/09/20 22:17 Pulse Oximetry 96 12/09/20 22:17 Discharge Plan Discharge Clinical Impression: Upper respiratory infection Patient Disposition: Home, Self-Care Condition: Stable Instructions: Viral Syndrome (ED) Additional Instructions: Return the ER if you cannot breathe, you cannot swallow, you have chest pain or shortness of breath, you have additional concerns. Continue your home Flonase. Take nasal decongestants in addition. Prescriptions: New pseudoephedrine-guaifenesin [Mucus D] 60-600 mg tablet extended release 12 hr 1 tablet PO Q12H PRN (Reason: cold symptoms) Qty: 20 RF: 0 Follow-up/Referrals: Kourtney,Trina Muñoz [Primary Care Provider] - 1 Week Stand Alone Forms: Work/School Release IP
[2020-12-10 00:49] VITALS: BP 113/68; PULSE 72; RESP 16; TEMP 36.4; O2SAT 98
== END 2020-12-10 00:49 | disposition home or self-care (01) ==
PROVIDERS: Emergency Provider Emergency Medicine; PCP Internal Medicine Infectious Disease
DX: J06.9 Acute upper respiratory infection, unspecified (principal); F17.210 Nicotine dependence, cigarettes, uncomplicated; J45.909 Unspecified asthma, uncomplicated
CPT/HCPCS: 99283

== ENCOUNTER 2021-03-03 11:12 | Emergency (ER) | payer OTHER, SELFPAY ==
[2021-03-03 11:22] VITALS: BP 130/83; PULSE 67; RESP 20; TEMP 36.4; O2SAT 99
--- NOTE | 2021-03-03 13:27 | ED.NECK ---
HPI - Neck Pain/Injury General Chief Complaint: Neck Pain/Injury Stated Complaint: NECK PAIN/ALEXANDER Time Seen by Provider: 03/03/21 13:17 Source: patient Mode of arrival: ambulatory Limitations: no limitations History of Present Illness HPI Narrative: Patient is 35 years old white female complaining of neck pain bilaterally, upper back pain bilaterally after slipping on oil while fixing a transmission on the floor 1 month ago. Patient denies any loss of consciousness at that time, been complaining of intermittent upper back, neck pain causing occipital headache every now and then, got worse over the last 24 hours. Patient denies any fever, chills, nausea, vomiting, blurred vision, lightheadedness, dizziness, focal weakness or numbness or tingling. Patient is in hurry and would like some pain medication to go home right away. Declined any imaging at this time. Related Data Home Medications Medication Instructions Recorded Confirmed No Home Medications 03/03/21 03/03/21 Allergies Allergy/AdvReac Type Severity Reaction Status Date / Time Penicillins Allergy Unknown Unknown Verified 03/03/21 11:23 Review of Systems Review of Systems: CONSTITUTIONAL: Denies fever, chills, or sweats. EYES: Denies visual changes, redness, or discharge. ENT: Denies rhinorrhea, congestion, sore throat, or otalgia. CARDIOVASCULAR: Denies chest pain, palpitations, or edema. RESPIRATORY: Denies cough or dyspnea. GASTROINTESTINAL: Denies abdominal pain, nausea, vomiting, or diarrhea. GENITOURINARY: Denies dysuria or hematuria. SKIN: Denies rash or itching. MUSCULOSKELETAL: Neck pain NEUROLOGIC: Denies headache, numbness, or weakness. PSYCHIATRIC: Denies anxiety or depression. [facility] Past Medical History Medical History (Updated 03/03/21 @ 13:52 by Eden Kennedy MD) Asthma Hernia Hx of migraines Surgical History Surgical History H/O hernia repair Social History Social History Smoking packs per day: 0.5 Smoking cigarettes per day: 10.0 Smoking status: Current every day smoker Tobacco type: cigarettes Substance use type: marijuana Gender identity (if verbalized by the patient): Male Exam Narrative: General appearance: Well-developed, well-nourished Skin: Normal color Head: Normocephalic, nontraumatic Eyes: Clear conjunctiva ENT: Oropharynx normal, ears normal, nose normal Neck: Supple, nontender Chest and respiratory: Airway patent, no respiratory distress, no accessory muscle use Heart: Regular rate/rhythm Abdomen: Soft, nontender, no organomegaly, quiet bowel sounds Vascular: Normal peripheral pulses, normal capillary refill. Musculoskeletal: Diffuse neck tenderness, posteriorly, slight limited range of motion, no bruises, no deformity Neurologic: Alert and oriented ?3, [employer] is normal as tested, no gross motor deficit Course Course Emergency Course: Stable Vital Signs Vital signs: Vital Signs Temperature 36.4 C L 03/03/21 11:22 Pulse Rate 67 03/03/21 11:22 Respiratory Rate 20 03/03/21 11:22 Blood Pressure 130/83 03/03/21 11:22 Pulse Oximetry 99 03/03/21 11:22 Temperature 36.4 C L 03/03/21 11:22 Pulse Rate 67 03/03/21 11:22 Respiratory Rate 20 03/03/21 11:22 Blood Pressure 130/83 03/03/21 11:22 Pulse Oximetry 99 03/03/21 11:22 MDM - Neck Pain/Injury MDM Narrative Medical decision making narrative: Musculoskeletal pain is my concern. Patient declined any imaging at this time, have to go right away because have a lot to do today. Critical Care Time Critical Care Time Critical Care Time: No
--- NOTE | 2021-03-03 15:16 | PC.NURSE ---
Addendum entered by Juan Pablo Eastman RN 03/03/21 15:29: I attempted to reach patient three times by phone number in his chart to provide him with his discharge education and prescriptions. there was no answer and no voicemail prompt either. Original Note: at 1520 patient reported to this nurse that he was feeling better and that the Ice pack I had provided was helping his discomfort. He verbalized his intention to leave the ED because he was feeling better. At that time the EDP came and began to speak with the patient. The EDP printed this patient's discharge packet but when I went to the room to discharge the patient he and his visitor were gone. They left the ED before receiving discharge education and instructions as well as prescriptions and education/instructions for their use.
== END 2021-03-03 15:33 | disposition home or self-care (01) ==
PROVIDERS: Emergency Provider Emergency Medicine; PCP Internal Medicine Infectious Disease
DX: S16.1XXA Strain of muscle, fascia and tendon at neck level, initial encounter (principal); F17.210 Nicotine dependence, cigarettes, uncomplicated; Z87.09 Personal history of other diseases of the respiratory system; Z86.69 Personal history of other diseases of the nervous system and sense organs; W18.40XA Slipping, tripping and stumbling without falling, unspecified, initial encounter
CPT/HCPCS: 99283

== ENCOUNTER 2021-10-31 20:39 | Emergency (ER) | payer OTHER, SELFPAY ==
--- NOTE | ~2021-10-31 | XR_ITS ---
EXAMINATION: XR knee LT 3V DATE: 10/31/2021 23:08 INDICATION: Chronic left knee pain TECHNIQUE: Three views of the left knee were obtained. COMPARISON: None. FINDINGS: Alignment is normal. No fracture or osteochondral lesion. Joint spaces are normal with no e rosions. There is a small knee joint effusion. Soft tissues are unremarkable. IMPRESSION: 1. Small knee joint effusion without acute osseous abnormality. Reviewed, dictated and finalized at location A.
[2021-10-31 20:40] VITALS: PULSE 88; RESP 18; TEMP 37; O2SAT 98
[2021-10-31] MEDS: ACETAMINOPHEN 325 MG TABLET 650 MG PO (23:46)
--- NOTE | 2021-11-01 00:28 | ED.LOWEXIN ---
HPI - Extremity Injury (Lower) General Chief Complaint: Extremity Injury, Lower Stated Complaint: left knee pain x 5 months Time Seen by Provider: 10/31/21 22:54 History of Present Illness HPI Narrative: Patient states he started noticing some pain in his left knee about 5 months ago, denies any trauma to it, no numbness or tingling or weakness anywhere, he states he also has some neck pain when he woke up this morning and thinks he slept on it funny. Related Data Home Medications Medication Instructions Recorded Confirmed No Home Medications 03/03/21 03/03/21 Allergies Allergy/AdvReac Type Severity Reaction Status Date / Time Penicillins Allergy Unknown Unknown Verified 10/31/21 20:42 Review of Systems Review of Systems: All systems reviewed & are unremarkable except as noted in HPI and below PMFSH Past Medical History Medical History Asthma Hernia Hx of migraines Surgical History Surgical History H/O hernia repair Social History Social History Smoking packs per day: 0.5 Smoking cigarettes per day: 10.0 Smoking status: Current every day smoker Tobacco type: cigarettes Substance use type: marijuana Gender identity (if verbalized by the patient): Male Exam Narrative: EXAMINATION OF ORGAN SYSTEMS/BODY AREAS: Constitutional: Vital signs per nursing GENERAL:[No acute distress, non-toxic appearing.] HEAD: Normal with no signs of head trauma. EYES: EOMI, conjunctiva normal ENT: Hearing grossly intact NECK: Minimal tenderness left paraspinal no midline tenderness LUNGS: Nonlabored breathing. HEART: [Regular rate and rhythm] ABD: No distention EXT: Normal range of motion SKIN: Some abrasions to left leg NEURO: [Alert and oriented x 3. No gross focal sensory or strength deficits.] PSYCH: Normal affect Course Course Emergency Course: 36-year-old male presents with 5 months of chronic left knee pain without trauma, and some neck pain when he woke up, mostly stable, exam shows neurovascular intact, range of motion normal, some tenderness palpation around the lateral knee, no neuro deficits and doubt any CVA/carotid etiology regarding his neck pain. I will obtain an x-ray but I doubt any fracture without trauma. By my interpretation no obvious fracture, he is given follow-up to orthopedics. Can return for any further issues. Vital Signs Vital signs: Vital Signs Temperature 98.6 F 10/31/21 20:40 Pulse Rate 88 10/31/21 20:40 Respiratory Rate 18 10/31/21 20:40 Pulse Oximetry 98 10/31/21 20:40 Temperature 98.6 F 10/31/21 20:40 Pulse Rate 88 10/31/21 20:40 Respiratory Rate 18 10/31/21 20:40 Pulse Oximetry 98 10/31/21 20:40 MDM - Extremity Injury (Lower) Imaging Data Attestation: I personally reviewed and interpreted this imaging study as follows: My impression: no acute fracture Discharge Plan Discharge Clinical Impression: Chronic knee pain Qualifiers: Laterality: left Qualified Code(s): M25.562 - Pain in left knee Patient Disposition: Home, Self-Care Condition: Stable Instructions: Antibiotic Form Prescriptions: No Action No Home Medications RF: 0 naproxen 500 mg tablet 500 mg PO BID PRN (Reason: pain) Qty: 14 RF: 0 cyclobenzaprine 10 mg tablet 10 mg PO TID PRN (Reason: muscle spasm) Qty: 20 RF: 0 Follow-up/Referrals: Kourtney,Stormy Muñoz. [Primary Care Provider] - Dom Napoles MD [Physician] -
== END 2021-11-01 00:56 | disposition home or self-care (01) ==
PROVIDERS: Emergency Provider Emergency Medicine; PCP Internal Medicine Infectious Disease
DX: M25.562 Pain in left knee (principal); F17.210 Nicotine dependence, cigarettes, uncomplicated
CPT/HCPCS: 73562; 99283; A9270

== ENCOUNTER 2022-06-01 01:37 | Inpatient (IN) | payer OTHER, SELFPAY ==
[2022-06-01] VITALS (17 sets, daily range): BP systolic 100–160; BP diastolic 60–91; PULSE 65–88; RESP 15–22; TEMP 36.2–36.8; O2SAT 95–100
--- NOTE | ~2022-06-01 | XR_ITS ---
EXAMINATION: XR retrograde pyelo w/stent LT DATE: 06/01/2022 8:15 ACADEMY EDUCATION DIRECTOR INDICATION: LEFT STONE . TECHNIQUE: 8 fluoroscopic images of the left abdomen and pelvis were obtained during left retrograde pyelography with stent placement performed by the surgeon. I was not present in the operating room. F luoroscopy exposure time was 28.3 seconds. DAP [id number] mGym2. COMPARISON: None FINDINGS: Cannulation of the left collecting system followed by contrast injection revealing mild caliectasis. No filling defect. Extensive displaced, proximal and terminates over the left renal pelvis, distal co il projects over the bladder. IMPRESSION: Fluoroscopic documentation of left retrograde pyelography with stent placement. Please refer to the o perative note for complete procedural details . Reviewed, dictated and finalized at location K. EMY EDUCATION DIRECTOR IMPRESSION: Fluoroscopic documentation of left retrograde pyelography with stent placement. Please refer to the operative note for complete procedural details .
--- NOTE | ~2022-06-01 | XR_ITS ---
EXAMINATION: XR abdomen/kub 1V DATE: 06/01/2022 07:34 INDICATION: Kidney stone. TECHNIQUE: A supine view of the abdomen on 2 radiographs was obtained. COMPARISON: CT abdomen and pelvis 06/01/2022 FINDINGS: There are no dilated loops of bowel. There is contrast in the renal collecting system. Ther e is mild left hydronephrosis and hydroureter. There is a phlebolith in left pelvis. IMPRESSION: 1. Mild left hydronephrosis and hydroureter. Reviewed, dictated and finalized at location A. CRANE OPERATOR
--- NOTE | ~2022-06-01 | CT_ITS ---
EXAMINATION: CT abdomen pelvis w con DATE: 06/01/2022 05:36 INDICATION: Left abdominal pain. TECHNIQUE: Computed tomography (CT) of the abdomen and pelvis was performed with 100 mL Omnipaque 350 intravenous contrast. Automated exposure control and iterative reconstruction technique were employe d. The dose-length product was 298.95 mGy-cm. COMPARISON: CT abdomen and pelvis 05/16/2019 FINDINGS: The visualized portions of the lung bases are clear without pneumonia or pleural effusion. The heart size is normal. No pericardial effusion. There is a 6 mm cyst in the liver. The gallbladder , spleen, pancreas, adrenal glands, and right kidney are normal. There is a delayed left-sided contra st nephrogram. There are two 2 mm stones in left kidney. There is mild left hydronephrosis and proxim al hydroureter. There is a 4 mm stone in proximal left ureter. There are no dilated loops of bowel. T he appendix is normal. There are no pathologically enlarged lymph nodes. There is no free intraperito feliberto fluid. There is mild lumbar spondylosis. IMPRESSION: 1. 4 mm stone in proximal left ureter with mild left hydronephrosis and proximal hydroureter. 2. Small nonobstructing left kidney stones. Reviewed, dictated and finalized at location A. INERY TEACHER IMPRESSION: 1. 4 mm stone in proximal left ureter with mild left hydronephrosis and proxima l hydroureter. 2. Small nonobstructing left kidney stones.
--- NOTE | ~2022-06-01 | XR_ITS ---
EXAMINATION: XR abdomen/kub 1V DATE: 06/02/2022 06:36 INDICATION: Left ureteral stone status post stent placement. TECHNIQUE: A supine view of the abdomen was obtained. COMPARISON: Abdomen radiographs 06/01/2022, CT abdomen and pelvis 06/01/2022 FINDINGS: There are no dilated loops of bowel. There are phleboliths in left pelvis. There is a left internal ureteral stent in expected position. There is an 8 x 3 mm stone in the left ureter at L4-L5. IMPRESSION: 1. 8 x 3 mm stone in left ureter at L4-L5 with left internal ureteral stent in expected position. Reviewed, dictated and finalized at location A. NILE CORRECTIONS OFFICER
--- NOTE | 2022-06-01 02:29 | PC.NURSE ---
Pt rolling on floor in waiting room, stating If i from this, I hope you have a big lawsuit . Pt educated on why he was sent out to waiting room, as there are no beds available in ED. Pt then requesting pain medication. Pt educated on need to be seen by provider before medication can be given. Pt ambulated with steady gait to triage room for blood draw and urine sample cup given.
[2022-06-01 02:33] LABS: Basophils Absolute Auto 0.2 K/mm3 (0.0-0.1); Basophils Percent Auto 0.6 % (0.2-1.2); Eosinophils Absolute Auto 0.2 K/mm3 (0-0.3); Eosinophils Percent Auto 0.7 % (0-4.4); Hematocrit 43.5 % (42.0-52.0); Hemoglobin 14.2 g/dL (14.0-18.0); Immature Granulocyte Absolute 0.12 K/mm3 (0.00-0.031); Immature Granulocyte Percent A 0.5 % (0-0.5); Lymphocytes Absolute Auto 1.57 K/mm3 (0.9-3.2); Lymphocytes Percent Auto 6.5 % (18.3-44.2); Mean Corpuscular HGB Conc 32.6 g/dl (32-36); Mean Corpuscular Hemoglobin 30.5 pg (26-34); Mean Corpuscular Volume 93.3 fl (80-100); Monocytes Absolute Auto 1.7 K/mm3 (0.1-0.6); Monocytes Percent Auto 7.1 % (2.6-8.5); Neutrophils Absolute Auto 20.4 K/mm3 (1.3-6.7); Neutrophils Percent Auto 84.6 % (45.5-73.1); Platelet Count Result 362 k/mm3 (150-375); Red Blood Count 4.66 M/mm3 (4.6-6.20); Red Cell Distribution Width 12.3 % (11.5-14.5); White Blood Count 24.1 K/mm3 (4.5-10.0)
[2022-06-01 02:43] LABS: Alanine Aminotransferase 26 U/L (6-50); Albumin Level 4.6 g/dL (3.5-5.1); Alkaline Phosphatase 109 U/L (38-126); Anion Gap 9 mmol/L (8-16); Aspartate Amino Transferase 25 U/L (17-59); Bilirubin,Total 0.6 mg/dL (0.2-1.3); Blood Urea Nitrogen 12 mg/dL (9-20); Calcium 10.3 mg/dL (8.4-10.2); Carbon Dioxide 28 mmol/L (22-30); Chloride 102 mmol/L (98-107); Estimated CRCL calculation 97 ml/min; Estimated Glomerular Filt Rate > 60; Glucose 137 mg/dL (65-110); Lipase 84 U/L (23-300); Potassium 3.7 mmol/L (3.4-5.0); Sodium 139 mmol/L (137-145)
[2022-06-01 04:50] LABS: Appearance Urine Clear (Clear); Bilirubin Urine Negative (Negative); Blood Urine 3+ (Negative); Color Urine Yellow (Yellow); Glucose Urine UA Negative (Negative); Ketones Urine Negative (Negative); Leukocyte Esterase Ur 1+ LEU/UL (Negative); Nitrate Urine Negative (Negative); Protein Urine 2+ mg/dL (Negative); Urobilinogen Urine 0.2 mg/dL (<2.0)
[2022-06-01 04:59] LABS: Bacteria Urine Trace /hpf; Mucus Urine Rare /lpf; Squamous Epithelial Cell Urine Few /hpf (Few); WBC Urine 31-50 /hpf
[2022-06-01] MEDS: SODIUM CHLORIDE 0.9% IV 1,000 ML 999 ML IV CONT (05:07)
[2022-06-01] MEDS: MORPHINE SULFATE (*CRX) 4 MG/ML INJ IV PUSH (05:07)
[2022-06-01 05:14] LABS: Add Urine Microscopic? YES
--- NOTE | 2022-06-01 06:14 | ED.ABDPAIN ---
HPI - Abdominal Pain General Chief Complaint: Abdominal Pain Stated Complaint: Abd pain x4 hours, Hx UC Time Seen by Provider: 06/01/22 04:43 History of Present Illness HPI narrative: Patient is a 37-year-old male who presents ER with sudden onset left-sided abdominal pain. Left upper quadrant. Radiates down towards his lower abdomen. Also radiates into his left back. Worse with movement. Reports urinary frequency and urgency. No dysuria. Denies fevers or chills but has had some hot sweats. He has waves of nausea. He has history of ulcerative colitis but is on no medication to control it. He is having no diarrhea. Denies history of kidney stones. Has found no alleviating factors for his pain Related Data Home Medications Medication Instructions Recorded Confirmed No Home Medications 03/03/21 03/03/21 Allergies Allergy/AdvReac Type Severity Reaction Status Date / Time Penicillins Allergy Unknown Unknown Verified 10/31/21 20:42 Review of Systems Review of Systems: All systems reviewed & are unremarkable except as noted in HPI and below Constitutional: Constitutional: Denies chills, Denies fatigue and Denies fever(s) Comments: Hot flashes ENT: Denies nasal congestion and Denies sore throat Cardiovascular: Cardiovascular: Denies chest pain, Denies rapid heart rate and Denies radiating jaw, neck or arm pain Respiratory: Respiratory: Denies cough and Denies dyspnea Gastrointestinal: Gastrointestinal: Reports abdominal pain, Denies diarrhea, Reports nausea and Denies vomiting Genitourinary: Genitourinary: Denies hematuria, Denies dysuria and Reports urinary frequency PMFSH Past Medical History Medical History (Updated 06/01/22 @ 07:13 by Corbin Chaudhary MD) Asthma Hernia Hx of migraines Surgical History Surgical History H/O hernia repair Social History Social History Smoking packs per day: 0.5 Smoking cigarettes per day: 10.0 Smoking status: Current every day smoker Tobacco type: cigarettes Substance use type: marijuana Gender identity (if verbalized by the patient): Male Exam Narrative: GENERAL: Uncomfortable-appearing, well-nourished, and in mild distress. HEAD: Normocephalic, atraumatic. EYES: PERRL and EOMI. NECK: Supple. CHEST: Clear to auscultation. No respiratory distress. HEART: Regular rate and rhythm. Normal peripheral pulses. ABDOMEN: Soft, nontender, nondistended. Mild CVA tenderness. EXTREMITIES: Normal range of motion. No edema. SKIN: Warm, dry, no rash. NEURO: Alert and oriented x3. PSYCH: Normal mood and affect. Course Course Emergency Course: Patient still with 6/10 pain after pain medication though he does look like he is feeling improved. Discussed case with urology. Patient will go to the OR for stent placement. Antibiotics ordered. Patient aware of diagnosis and treatment plan. Vital Signs Vital signs: Vital Signs Temperature 97.7 F 06/01/22 02:01 Pulse Rate 81 06/01/22 02:01 Respiratory Rate 22 H 06/01/22 02:01 Blood Pressure 134/80 06/01/22 02:01 Pulse Oximetry 100 06/01/22 02:01 Oxygen Delivery Room Air 06/01/22 02:01 Temperature 97.7 F 06/01/22 02:01 Pulse Rate 77 06/01/22 05:53 Respiratory Rate 16 06/01/22 05:53 Blood Pressure 121/78 06/01/22 05:53 Pulse Oximetry 100 06/01/22 05:53 Oxygen Delivery Room Air 06/01/22 02:01 MDM - Abdominal Pain Lab Data 06/01/22 02:27 06/01/22 02:27 Labs: Lab Results 06/01/22 06/01/22 06/01/22 Range/Units 02:27 02:27 04:36 WBC 24.1 H (4.5-10.0) K/mm3 RBC 4.66 (4.6-6.20) M/mm3 Hgb 14.2 (14.0-18.0) g/dL Hct 43.5 (42.0-52.0) % MCV 93.3 (80-100) fl MCH 30.5 (26-34) pg MCHC 32.6 (32-36) g/dl RDW 12.3 (11.5-14.5) % Plt Count 362 (150-375) k/mm3 MPV 10.0 (7.4-10.4) fl Im
[2022-06-01 06:44] LABS: Lactic Acid Reflex 0.9 mmol/L (0.7-2.0)
--- NOTE | 2022-06-01 08:09 | WPDHPUPDATE1 ---
History and Physical Update Update Date/Time: 06/01/22 08:09 History and Physical has been reviewed, including an updated exam of the patient. There are NO changes in the patient's condition. Risks, benefits, and alternatives have been discussed and questions answered. Patient agrees to proceed with procedure. Proceed with cystoscopy, left retrograde pyelogram, left ureteral stent placement. The stone will need to be addressed at a later point in time
--- NOTE | 2022-06-01 08:12 | PM.IMHP ---
H&P: HPI History of Present Illness Date/Time: 06/01/22 08:12 Chief Complaint: Obstructing left ureteral calculus with UTI and elevated white Narrative: 37-year-old male presents to the emergency room with significant left renal colic. He also describes feeling somewhat hot. Evaluation in emergency room revealed a 4-5 mm obstructing left ureteral stone. More impressively [place] [address]. He did have urinalysis that had 31-40 white cells present. Patient denies any prior history of stones. Will proceed with cysto left retrograde left stent placement at this time. Patient will be admitted for IV antibiotics and awaiting culture results. Will address the stone later point time. Review of Systems Review of Systems: All systems reviewed & are unremarkable except as noted in HPI and below PMFSH Past Medical History Medical History Asthma Hernia Hx of migraines Surgical History Surgical History H/O hernia repair Social History Social History Smoking packs per day: 0.5 Smoking cigarettes per day: 10.0 Smoking status: Current every day smoker Tobacco type: cigarettes Substance use type: marijuana Gender identity (if verbalized by the patient): Male Meds Home Medications and Allergies Home Medications Medication Instructions Recorded Confirmed Type No Home Medications 03/03/21 03/03/21 History cyclobenzaprine 10 mg tablet 10 mg PO TID PRN muscle spasm #20 03/03/21 Rx tabs naproxen 500 mg tablet 500 mg PO BID PRN pain #14 tabs 03/03/21 Rx Allergies Allergy/AdvReac Type Severity Reaction Status Date / Time Penicillins Allergy Unknown Unknown Verified 06/01/22 07:18 Vital Signs Vital Signs - 24 hr 06/01/22 02:01 06/01/22 04:35 06/01/22 05:53 Temperature 36.5 C Pulse Rate 81 72 77 Respiratory Rate 22 H 18 16 Blood Pressure 134/80 160/91 H 121/78 Pulse Oximetry 100 100 100 Oxygen Delivery Room Air 06/01/22 07:29 Temperature Pulse Rate 81 Respiratory Rate 18 Blood Pressure 133/90 Pulse Oximetry 100 Oxygen Delivery Exam Const: General: cooperative and comfortable HENMT: Head: normal to inspection Neck: Neck: normal visual inspection Chest: Chest palpation & inspection: normal inspection of the chest Resp: Effort & Inspection: normal respiratory effort GI: Inspection: normal to inspection Back/Spine/Pelvis: Back: no CVA tenderness H&P: Results Labs Labs: Short CBC 06/01/22 Range/Units 02:27 WBC 24.1 H (4.5-10.0) K/mm3 Hgb 14.2 (14.0-18.0) g/dL Hct 43.5 (42.0-52.0) % Plt Count 362 (150-375) k/mm3 BMP 06/01/22 02:27 Sodium 139 Potassium 3.7 Chloride 102 Carbon Dioxide 28 BUN 12 Creatinine 0.90 Glucose 137 H Calcium 10.3 H Liver Function 06/01/22 Range/Units 02:27 Total Bilirubin 0.6 (0.2-1.3) mg/dL AST 25 (17-59) U/L ALT 26 (6-50) U/L Alkaline Phosphatase 109 (38-126) U/L Albumin 4.6 (3.5-5.1) g/dL Urine 06/01/22 Range/Units 04:36 Urine Color Yellow (Yellow) Urine Appearance Clear (Clear) Urine pH 6.0 (5.0-9.0) Ur Specific [place] 1.020 (1.001-1.035) Urine Protein 2+ H (Negative) mg/dL Urine Glucose (UA) Negative (Negative) mg/dL Assessment and Plan Assessment and plan (1) Calculus, ureteral: Code(s): N20.1 - Calculus of ureter Status: Acute Assessment and Plan: Will plan on cysto left retrograde left stent placement given his concurrent UTI. Will address the stone at a later point time. (2) Acute UTI: Code(s): N39.0 - Urinary tract infection, site not specified Status: Acute Assessment and Plan: See above patient will be admitted for IV antibiotics postoperatively
--- NOTE | 2022-06-01 08:24 | WPDANESEPPF ---
Anes - Initial Pre Proc Eval Procedure: Operation Date: 06/01/22 08:00 Proposed Procedures p Cysto, RPG, Stone Ext, Stent Placement - Salvador Russ MD Date/Time: 06/01/22 08:24 Surgeon: Salvador Russ MD Pre Op Diagnosis: Kidney Stone Patient Data Age: 37 Gender: M Height: 1.75 m Weight: 81.8 kg Last Vital Signs Temp 36.5 C 06/01/22 02:01 Pulse 81 06/01/22 07:29 Resp 18 06/01/22 07:29 BP 133/90 06/01/22 07:29 Pulse Ox 100 06/01/22 07:29 O2 Del Method Room Air 06/01/22 02:01 Allergies Allergy/AdvReac Type Severity Reaction Status Date / Time Penicillins Allergy Unknown Unknown Verified 06/01/22 07:18 Home Medications Medication Instructions Recorded Confirmed Type No Home Medications 03/03/21 03/03/21 History cyclobenzaprine 10 mg tablet 10 mg PO TID PRN muscle spasm #20 03/03/21 Rx tabs naproxen 500 mg tablet 500 mg PO BID PRN pain #14 tabs 03/03/21 Rx Laboratory Tests 06/01/22 06/01/22 06/01/22 02:27 02:27 04:36 WBC 24.1 K/mm3 H K/mm3 (4.5-10.0) RBC 4.66 M/mm3 M/mm3 (4.6-6.20) Hgb 14.2 g/dL g/dL (14.0-18.0) Hct 43.5 % % (42.0-52.0) MCV 93.3 fl fl (80-100) MCH 30.5 pg pg (26-34) MCHC 32.6 g/dl g/dl (32-36) RDW 12.3 % % (11.5-14.5) Plt Count 362 k/mm3 k/mm3 (150-375) MPV 10.0 fl fl (7.4-10.4) Immature Gran % (Auto) 0.5 % % (0-0.5) Neut % (Auto) 84.6 % H % (45.5-73.1) Lymph % (Auto) 6.5 % L % (18.3-44.2) [place] % (Auto) 7.1 % % (2.6-8.5) Eos % (Auto) 0.7 % % (0-4.4) Baso % (Auto) 0.6 % % (0.2-1.2) Lymph # (Auto) 1.57 K/mm3 K/mm3 (0.9-3.2) [place] # (Auto) 1.7 K/mm3 H K/mm3 (0.1-0.6) Eos # (Auto) 0.2 K/mm3 K/mm3 (0-0.3) Baso # (Auto) 0.2 K/mm3 H K/mm3 (0.0-0.1) Abs Immat Gran (auto) 0.12 K/mm3 H K/mm3 (0.00-0.031) Absolute Neuts (auto) 20.4 K/mm3 H K/mm3 (1.3-6.7) Absolute Nucleated RBC 0.0 K/mm3 K/mm3 (0.0-0.012) Nucleated RBC % 0.0 % % (0.0-0.2) Sodium 139 mmol/L mmol/L (137-145) Potassium 3.7 mmol/L mmol/L (3.4-5.0) Chloride 102 mmol/L mmol/L (98-107) Carbon Dioxide 28 mmol/L mmol/L (22-30) Anion Gap 9 mmol/L mmol/L (8-16) BUN 12 mg/dL mg/dL (9-20) Creatinine 0.90 mg/dL mg/dL (0.7-1.3) Estim Creat Clear Calc 97 ml/min ml/min Estimated GFR > 60 (59 - ) Glucose 137 mg/dL H mg/dL (65-110) Lactic Acid Calcium 10.3 mg/dL H mg/dL (8.4-10.2) Total Bilirubin 0.6 mg/dL mg/dL (0.2-1.3) AST 25 U/L U/L (17-59) ALT 26 U/L U/L (6-50) Alkaline Phosphatase 109 U/L U/L (38-126) Total Protein 8.0 g/dL g/dL (6.3-8.2) Albumin 4.6 g/dL g/dL (3.5-5.1) Lipase 84 U/L U/L (23-300) Urine Color Yellow (Yellow) Urine Appearance Clear (Clear) Urine pH 6.0 (5.0-9.0) Ur Specific [place] 1.020 (1.001-1.035) Urine Protein 2+ mg/dL H mg/dL (Negative) Urine Glucose (UA) Negative mg/dL mg/dL (Negative) Urine Ketones Negative mg/dL mg/dL (Negative) Ur Blood (Man) 3+ H (Negative) Urine Nitrate Negative (Negative) Urine Bilirubin Negative (Negative) Urine Urobilinogen 0.2 mg/dL mg/dL (<2.0) Leukocyte Esterase Rfl 1+ ARLETH/UL H ARLETH/UL (Negative) Urine RBC 11-20 /hpf H /hpf (0-2) Urine WBC 31-50 /hpf H /hpf Ur Squamous Epith Cells Few /hpf /hpf (Few) Urine Bacteria Trace /hpf /hpf Urine Mucus Rare /lpf /lpf 06/01/22 06:22 WBC RBC Hgb Hct MCV
[2022-06-01] MEDS: LIDOCAINE HCL 2% GEL UROJET 10 ML PKG MUCOUS MEM (08:28)
--- NOTE | 2022-06-01 08:35 | P.OP_ITS ---
Procedure Note - Detailed Date of Procedure 06/01/22 Pre-op Diagnosis Kidney Stone Obstructing left ureteral stone with hydronephrosis Post-op Diagnosis Same (Meatal stenosis in addition) Procedure Performed Cystoscopy, left retrograde pyelogram, left ureteral stent placement, 4.8 [place] contour. Dilation of meatal stenosis Surgeon Salvador Russ MD Anesthesia General Description of Procedure Patient is taken to the operative suite and correctly identified. Once anesthesia was obtained was placed in dorsal lithotomy position and prepped and draped usual sterile fashion. The meatus would not allow placement of a 22 [place] scope. Meatus was then dilated up to 20 [place]. A 19 [place] scope was then placed. There were no urethral strictures. Prostate nonobstructing. The bladder itself has no tumors. Left ureteral orifice was cannulated with a [place] in a retrograde pyelogram was performed. I was unable to really visualize location of the stone on this pyelogram. We then went ahead and placed a 4.8 [place] contour stent with the proximal end coiled in the renal pelvis and the distal end of the bladder. Bladder was drained. 2% viscous lidocaine was inserted into the urethra patient is taken recovery stable condition. He will be admitted for IV antibiotics await cultures. Will address the stone later point time. Will obtain a KUB in the morning. Estimated Blood Loss 0 Drains Yes Packing No Pathology None sent Complications No immediate complications Condition Stable Disposition PACU
[2022-06-01] MEDS: LACTATED RINGERS 1,000 ML 30 ML IV CONT (08:40)
--- NOTE | 2022-06-01 13:12 | ADMGEN ---
This patient, Anastacio Delgadillo, was admitted to [facility] Room 301-01. Patient/family oriented to hospital policies and general routines including ID bracelet, bed and alarms, visiting hours, pain management, procedures, bathroom and other care routines, personal items, smoking policy, room service/diet, and visiting hours. Information on how to activate the Rapid Response Team has been discussed. Patient/Family are encouraged to report perceived risks to care and to ask questions if they do not understand what they are told or what they should do.
[2022-06-01] MEDS: DEXTROSE 5%/LACTATED RINGERS 1,000 ML 125 ML IV CONT (15:03)
[2022-06-01] MEDS: HYDROcodone/acetaminophen (*CRX) 5-325 MG TABLET 1 TAB PO (22:30)
[2022-06-01] MEDS: ONDANSETRON INJ 4 MG/2 ML VIAL IV PUSH (22:36)
[2022-06-02] VITALS (7 sets, daily range): BP systolic 89–115; BP diastolic 44–66; PULSE 103–117; RESP 14–18; TEMP 35.8–38.7; O2SAT 93–98
[2022-06-02] MEDS: DEXTROSE 5%/LACTATED RINGERS 1,000 ML 125 ML IV CONT ×2 (03:06→11:51)
[2022-06-02] MEDS: HYDROcodone/acetaminophen (*CRX) 5-325 MG TABLET 2 TAB PO ×2 (05:11→11:50)
[2022-06-02 07:19] LABS: Basophils Percent Auto 0.2 % (0.2-1.2); Eosinophils Percent Auto 0.1 % (0-4.4); Hematocrit 38.1 % (42.0-52.0); Hemoglobin 12.4 g/dL (14.0-18.0); Immature Granulocyte Absolute 0.09 K/mm3 (0.00-0.031); Immature Granulocyte Percent A 0.5 % (0-0.5); Lymphocytes Absolute Auto 0.65 K/mm3 (0.9-3.2); Lymphocytes Percent Auto 3.5 % (18.3-44.2); Mean Corpuscular HGB Conc 32.5 g/dl (32-36); Mean Corpuscular Hemoglobin 30.8 pg (26-34); Mean Corpuscular Volume 94.5 fl (80-100); Mean Platelet Volume 10.8 fl (7.4-10.4); Monocytes Absolute Auto 1.5 K/mm3 (0.1-0.6); Neutrophils Absolute Auto 16.5 K/mm3 (1.3-6.7); Neutrophils Percent Auto 87.7 % (45.5-73.1); Platelet Count Result 268 k/mm3 (150-375); Red Blood Count 4.03 M/mm3 (4.6-6.20); Red Cell Distribution Width 12.5 % (11.5-14.5); White Blood Count 18.8 K/mm3 (4.5-10.0)
--- NOTE | 2022-06-02 08:55 | WPDANESPN ---
Anes - Prog Note Post-Op Date/Time: 06/02/22 08:55 Cardiovascular status: normal Respiratory status: normal Airway patency: baseline Mental status: baseline Post-Op hydration status: normal Vital Signs: Last Vital Signs Temp 99.4 F 06/02/22 06:00 Pulse 117 H 06/02/22 06:00 Resp 18 06/02/22 06:00 BP 91/54 L 06/02/22 06:00 Pulse Ox 93 06/02/22 06:00 O2 Del Method Room Air 06/01/22 20:55 O2 Flow Rate 8 06/01/22 09:10 Pain Score (VAS): 0 I/O: Intake & Output 06/01/22 06/02/22 06/02/22 23:59 07:59 15:59 Intake Total 1450 Balance 1450 Laboratory Tests 06/01/22 02:27 06/02/22 06:00 WBC Pending RBC Pending Hgb Pending Hct Pending MCV Pending MCH Pending MCHC Pending RDW Pending Plt Count Pending MPV Pending Immature Gran % (Auto) Pending Neut % (Auto) Pending Lymph % (Auto) Pending [place] % (Auto) Pending Eos % (Auto) Pending Baso % (Auto) Pending Lymph # (Auto) Pending [place] # (Auto) Pending Eos # (Auto) Pending Baso # (Auto) Pending Abs Immat Gran (auto) Pending Absolute Neuts (auto) Pending Absolute Nucleated RBC Pending Nucleated RBC % Pending Post-procedural complaints: none Patient Feedback: Patient satisfied with anesthetic care.
--- NOTE | 2022-06-02 16:28 | WPDUROPN2 ---
Progress Note: A&P Assessment and Plan (1) Calculus, ureteral: Code(s): N20.1 - Calculus of ureter Status: Acute Assessment and Plan: KUB shows stone and stent, when infection resolves in 1-2 weeks, will plan to do a Left ESWL as an outpatient. He will need to f/u in the office in one week to repeat a urine culture prior to having his ESWL. (2) Acute UTI: Code(s): N39.0 - Urinary tract infection, site not specified Status: Acute Assessment and Plan: Urine Cultures pending, restart Ceftriaxone, will tailor antibiotics to culture results. WBC improving, still febrile intermittently, hypotensive, consult hospitalist if persistently hypotensive. (3) Nicotine dependence: Code(s): F17.200 - Nicotine dependence, unspecified, uncomplicated Status: Acute Assessment and Plan: Start Nicotine patch 21mg. Patient is trying to leave the floor to smoke. (4) Pain due to ureteral stent: Code(s): T83.84XA - Pain due to genitourinary prosthetic devices, implants and grafts, initial encounter Status: Acute Assessment and Plan: Start Levsin PRN for stent pain. Subjective Subjective Date/Time Seen: 06/02/22 16:28 POD #1 Cystoscopy, left retrograde pyelogram, left ureteral stent placement, 4.8 [place] contour.? Dilation of meatal stenosis. Patient has been intermittently febrile and c/o pain/bladder spasms as well as needing to go outside and smoke and he is requesting a nicotine patch. Urine Culture Pending, restarted Ceftriaxone, he received one dose in the ER and ceftriaxone per surgery protocol. He remains hypotensive and tachycardic. Post Op day: 1 Review of Systems Cardiovascular: Cardiovascular: Denies chest pain Respiratory: Respiratory: Denies no additional respiratory complaints Gastrointestinal: Gastrointestinal: Denies abdominal pain, Denies nausea and Denies vomiting Genitourinary: Genitourinary: Denies hematuria, Denies dysuria, Reports flank pain, Denies urinary frequency, Denies urinary hesitancy, Denies urinary incontinence and Denies urinary urgency Exam Const: General: cooperative and comfortable Resp: Effort & Inspection: normal respiratory effort Cardio: Rate: tachycardic GI: GI Palp: Yes Soft to palpation and No Tenderness to palpation present (GI) : General: Yes no CVA tenderness Back/Spine/Pelvis: Back: No CVA tenderness Extrem: Right lower extremity: no edema Left lower extremity: no edema Objective Data Vital Signs Vital Signs: Vital Signs - 24 hr 06/01/22 18:03 06/01/22 20:55 06/01/22 22:00 Temperature 98.2 F Pulse Rate 77 Respiratory Rate 17 Blood Pressure 100/63 Pulse Oximetry 98 Oxygen Delivery Room Air Room Air 06/02/22 06:00 06/02/22 14:00 06/02/22 14:01 Temperature 99.4 F 96.5 F L Pulse Rate 117 H 114 H Respiratory Rate 18 18 Blood Pressure 91/54 L 89/44 L 102/66 Pulse Oximetry 93 98 Oxygen Delivery Intake/Output Intake/Output: Intake & Output 05/30/22 05/31/22 06/01/22 06/02/22 23:59 23:59 23:59 23:59 Intake Total 3300 1444 Output Total 150 Balance 3150 1444 Meds/Results Medications: Active Medications Generic Name Dose Route Start Last Admin Trade Name Freq PRN Reason Stop Dose Admin Hydrocodone Bitart/Acetaminophen 1 tab 06/01/22 22:22 06/01/22 22:30 Hydrocodone/Acetaminophen (*Crx) 5-325 Mg Tablet PO 1 tab Q4H PRN Administration Pain Rated 1-3 Hydrocodone Bitart/Acetaminophen 2 tab 06/01/22 22:22 06/02/22 11:50 Hydrocodone/Acetaminophen (*Crx) 5-325 Mg Tablet PO 2 tab Q4H PRN Administration Pain Rated 4-6 Hyoscyamine 0.125 mg 06/02/22 16:22 Hyoscyamine Sulfate 0.125 Mg Tablet PO Q4H PRN Bladder Spasm Dextrose/Lactated Ringer's 1,000 mls @ 125 mls/hr 06/01/22 10:49 06/02/22 11:51 Dextrose 5%/Lactated Ringers IV CONT 125 mls/hr .Q8H BRANDY Administration Ceftriaxone Sodium/Dextrose 1
[2022-06-02] MEDS: HYDROcodone/acetaminophen (*CRX) 5-325 MG TABLET 1 TAB PO (20:10)
[2022-06-02] MEDS: ACETAMINOPHEN 500 MG TABLET 1000 MG PO (22:09)
[2022-06-03] MEDS: DEXTROSE 5%/LACTATED RINGERS 1,000 ML 125 ML IV CONT ×2 (00:08→17:16)
[2022-06-03] MEDS: NICOTINE (*PBKC) 21 MG PATCH 1 PATCH TRANSDERM (00:08)
[2022-06-03 06:00] VITALS: BP 132/80; PULSE 88; RESP 22; TEMP 37.5; O2SAT 97
[2022-06-03] MEDS: HYDROcodone/acetaminophen (*CRX) 5-325 MG TABLET 2 TAB PO ×2 (08:17→19:56)
[2022-06-03 08:56] LABS: Hematocrit 38.7 % (42.0-52.0); Hemoglobin 12.9 g/dL (14.0-18.0); Mean Corpuscular HGB Conc 33.3 g/dl (32-36); Mean Corpuscular Hemoglobin 31.1 pg (26-34); Mean Corpuscular Volume 93.3 fl (80-100); Mean Platelet Volume 10.4 fl (7.4-10.4); Platelet Count Result 204 k/mm3 (150-375); Red Blood Count 4.15 M/mm3 (4.6-6.20); Red Cell Distribution Width 12.6 % (11.5-14.5); White Blood Count 19.3 K/mm3 (4.5-10.0)
[2022-06-03 09:13] LABS: Anion Gap 4 mmol/L (8-16); Blood Urea Nitrogen 7 mg/dL (9-20); Calcium 8.2 mg/dL (8.4-10.2); Carbon Dioxide 28 mmol/L (22-30); Chloride 96 mmol/L (98-107); Estimated CRCL calculation 122 ml/min; Estimated Glomerular Filt Rate > 60; Glucose 123 mg/dL (65-110); Potassium 3.1 mmol/L (3.4-5.0); Sodium 128 mmol/L (137-145)
[2022-06-03 13:51] VITALS: BP 114/66; PULSE 79; RESP 16; TEMP 36.4; O2SAT 100
--- NOTE | 2022-06-03 18:27 | WPDUROPN2 ---
Progress Note: A&P Assessment and Plan (1) Calculus, ureteral: Code(s): N20.1 - Calculus of ureter Status: Acute Assessment and Plan: Visible on KUB, plan to do a left ESWL in a few weeks when infection resolves. (2) Acute UTI: Code(s): N39.0 - Urinary tract infection, site not specified Status: Acute Assessment and Plan: Culture grew Group B strep, Continue Ceftriaxone at this time, will change to an oral prior to discharge. Repeat labs in the am, if he remains 24 hours fever free and WBC improves as well as pain is under better control, we will plan to discharge home maybe tomorrow. Subjective Subjective Date/Time Seen: 06/03/22 18:27 POD #2 Cystoscopy, left retrograde pyelogram, left stent, dilation of urethral meatus. Patient continues to be febrile with a low grade fever. Blood pressure has stabilized. KUB shows left renal stone. Urine culture grew group Beta Strep. WBC did increase slightly to 19, although he continues to Ceftriaxone. Review of Systems Constitutional: Constitutional: Reports snoring Cardiovascular: Cardiovascular: Denies chest pain Respiratory: Respiratory: Reports no additional respiratory complaints Gastrointestinal: Gastrointestinal: Denies abdominal pain Genitourinary: Genitourinary: Denies hematuria, Denies dysuria, Denies flank pain, Denies urinary frequency, Denies urinary hesitancy, Denies urinary incontinence and Denies urinary urgency Exam Const: General: comfortable Resp: Effort & Inspection: normal respiratory effort Cardio: Rate: regular rate GI: GI Palp: Yes Soft to palpation and No Tenderness to palpation present (GI) : General: Yes no CVA tenderness Extrem: Right lower extremity: no edema Left lower extremity: no edema Objective Data Vital Signs Vital Signs: Vital Signs - 24 hr 06/02/22 22:09 06/02/22 23:39 06/02/22 22:00 Temperature 101.7 F H 99.7 F H 101.7 F H Pulse Rate 103 H Respiratory Rate 14 Blood Pressure 115/62 Pulse Oximetry 96 Oxygen Delivery 06/02/22 23:00 06/02/22 20:10 06/03/22 06:00 Temperature 99.7 F H 99.5 F Pulse Rate 88 Respiratory Rate 22 H Blood Pressure 132/80 Pulse Oximetry 97 Oxygen Delivery Room Air 06/03/22 08:00 06/03/22 13:51 Temperature 97.6 F Pulse Rate 79 Respiratory Rate 16 Blood Pressure 114/66 Pulse Oximetry 100 Oxygen Delivery Room Air Intake/Output Intake/Output: Intake & Output 05/31/22 06/01/22 06/02/22 06/03/22 23:59 23:59 23:59 23:59 Intake Total 3300 3294 2338 Output Total 150 350 Balance 3150 3294 1988 Meds/Results Medications: Active Medications Generic Name Dose Route Start Last Admin Trade Name Freq PRN Reason Stop Dose Admin Acetaminophen 650 mg 06/03/22 04:00 Acetaminophen 325 Mg Tablet PO Q6H PRN Mild Pain (1-3) or Fever Hydrocodone Bitart/Acetaminophen 1 tab 06/01/22 22:22 06/02/22 20:10 Hydrocodone/Acetaminophen (*Crx) 5-325 Mg Tablet PO 1 tab Q4H PRN Administration Pain Rated 1-3 Hydrocodone Bitart/Acetaminophen 2 tab 06/01/22 22:22 06/03/22 08:17 Hydrocodone/Acetaminophen (*Crx) 5-325 Mg Tablet PO 2 tab Q4H PRN Administration Pain Rated 4-6 Hyoscyamine 0.125 mg 06/02/22 16:22 Hyoscyamine Sulfate 0.125 Mg Tablet PO Q4H PRN Bladder Spasm Dextrose/Lactated Ringer's 1,000 mls @ 125 mls/hr 06/01/22 10:49 06/03/22 17:16 Dextrose 5%/Lactated Ringers IV CONT 125 mls/hr .Q8H BRANDY Administration Ceftriaxone Sodium/Dextrose 1 gm in 50 mls @ 100 mls/hr 06/02/22 18:00 06/03/22 17:45 Rocephin 1 Gm/D5w 50 Ml IVPB Infused Q24H BRANDY Infusion Naloxone HCl 0.1 mg 06/01/22 10:49 Naloxone Hcl 0.4 Mg/Ml Vial IV PUSH Q2M PRN Opiate Reversal Nicotine 1 patch 06/02/22 17:43 06/03/22 08:20 Nicotine (*Pbkc) 21 Mg Patch TRANSDERM Not Given QAM BRANDY Ondansetron HCl 4 mg 06/01/22 10:49 06/01/22 22:36
[2022-06-03 22:00] VITALS: BP 113/71; PULSE 104; RESP 18; TEMP 37.7; O2SAT 97
[2022-06-04 06:00] VITALS: BP 99/59; PULSE 83; RESP 16; TEMP 36.6; O2SAT 98
[2022-06-04 06:57] LABS: Hematocrit 38.5 % (42.0-52.0); Hemoglobin 12.8 g/dL (14.0-18.0); Mean Corpuscular HGB Conc 33.2 g/dl (32-36); Mean Corpuscular Hemoglobin 31.2 pg (26-34); Mean Corpuscular Volume 93.9 fl (80-100); Mean Platelet Volume 11.2 fl (7.4-10.4); Platelet Count Result 180 k/mm3 (150-375); Red Cell Distribution Width 12.3 % (11.5-14.5); White Blood Count 14.6 K/mm3 (4.5-10.0)
[2022-06-04 07:12] LABS: Anion Gap 5 mmol/L (8-16); Blood Urea Nitrogen 8 mg/dL (9-20); Calcium 8.2 mg/dL (8.4-10.2); Carbon Dioxide 30 mmol/L (22-30); Chloride 98 mmol/L (98-107); Estimated CRCL calculation 108 ml/min; Estimated Glomerular Filt Rate > 60; Glucose 101 mg/dL (65-110); Potassium 3.2 mmol/L (3.4-5.0); Sodium 133 mmol/L (137-145)
[2022-06-04] MEDS: DEXTROSE 5%/LACTATED RINGERS 1,000 ML 125 ML IV CONT (12:14)
--- NOTE | 2022-06-04 16:03 | WPDUROPN2 ---
Progress Note: A&P Assessment and Plan (1) Acute UTI: Code(s): N39.0 - Urinary tract infection, site not specified Status: Acute Assessment and Plan: Culture grew Group B strep, responding to Ceftriaxone, per Discussion with [facility] pharmacy infectious disease specialist, we will discharge home today with Cefdinir BID 300mg x 10 days, then f/u in 1-2 weeks. to repeat a urine culture to prepare for left ESWL in the near future. (2) Calculus, ureteral: Code(s): N20.1 - Calculus of ureter Status: Acute Assessment and Plan: Needs Left ESWL in the near future once infection resolves. (3) Pain due to ureteral stent: Code(s): T83.84XA - Pain due to genitourinary prosthetic devices, implants and grafts, initial encounter Status: Acute Assessment and Plan: Tolearable Subjective Subjective Date/Time Seen: 06/04/22 16:03 POD #3 Cystoscopy , left stent, left retrograde pyelogram, dilation of meatal stenosis Patient doing better today, he is afebrile since yesterday morning. He denies pain from his stent and his urine culture grew Group B strep, however he appears to be responding to Ceftriaxone as his WBC has dropped to 14.6 from >19,000. Post Op day: 3 Review of Systems Respiratory: Respiratory: Reports no additional respiratory complaints Gastrointestinal: Gastrointestinal: Denies abdominal pain, Denies nausea and Denies vomiting Genitourinary: Genitourinary: Denies hematuria, Denies dysuria, Denies flank pain, Denies urinary frequency and Denies urinary hesitancy Exam Const: General: cooperative and comfortable Resp: Effort & Inspection: normal respiratory effort Cardio: Rate: regular rate GI: GI Palp: Yes Soft to palpation and No Tenderness to palpation present (GI) : General: Yes no CVA tenderness Back/Spine/Pelvis: Back: no CVA tenderness Extrem: Right lower extremity: no edema Left lower extremity: no edema Objective Data Vital Signs Vital Signs: Vital Signs - 24 hr 06/03/22 22:00 06/03/22 20:10 06/04/22 06:00 Temperature 100 F H 97.9 F Pulse Rate 104 H 83 Respiratory Rate 18 16 Blood Pressure 113/71 99/59 L Pulse Oximetry 97 98 Oxygen Delivery Room Air 06/04/22 08:00 Temperature Pulse Rate Respiratory Rate Blood Pressure Pulse Oximetry Oxygen Delivery Room Air Intake/Output Intake/Output: Intake & Output 06/01/22 06/02/22 06/03/22 06/04/22 23:59 23:59 23:59 23:59 Intake Total 3300 3294 2338 1000 Output Total 150 350 Balance 3150 3294 1988 1000 Meds/Results Radiology Results: ITS Impressions Abdomen/Pelvis CT 06/01/22 06:17 IMPRESSION: 1. 4 mm stone in proximal left ureter with mild left hydronephrosis and proximal hydroureter. 2. Small nonobstructing left kidney stones. Retrograde Pyelogram 06/01/22 14:38 IMPRESSION: Fluoroscopic documentation of left retrograde pyelography with stent placement. Please refer to the operative note for complete procedural details . Abdomen X-Ray 06/02/22 06:44 IMPRESSION: 1. 8 x 3 mm stone in left ureter at L4-L5 with left internal ureteral stent in expected position. Labs Labs: Laboratory Results - last 24 hr 06/04/22 06/04/22 06:08 06:08 WBC 14.6 H RBC 4.10 L Hgb 12.8 L Hct 38.5 L MCV 93.9 MCH 31.2 MCHC 33.2 RDW 12.3 Plt Count 180 MPV 11.2 H Sodium 133 L Potassium 3.2 L Chloride 98 Carbon Dioxide 30 Anion Gap 5 L BUN 8 L Creatinine 0.80 Estim Creat Clear Calc 108 Estimated GFR > 60 Glucose 101 Calcium 8.2 L
--- NOTE | 2022-06-04 16:25 | PM.DS ---
DS: Admitting Diagnosis Discharge Date 06/04/22 Admitting Diagnosis Left Ureteral Stone DS: Discharge Diagnosis Discharge Diagnosis Plan Left Ureteral Stone/UTI DS: Summary Hospital Course Reason for hospitalization: Left Ureteral Stone Hospital Course: The patient was admitted for a left ureteral stone and a UTI as well as fever upon initial presentation to the ER on 06/01/22. He then underwent a Cystoscopy, left retrograde pyelogram, left ureteral stent placement, 4.8 [place] contour dilation of meatal stenosis with Dr. Russ later that afternoon and was admitted for further observation of infection and pain control awaiting urine cultures. He remained febrile with left flank pain through yesterday. His urine culture grew Group B strep, which seems to be responsive to the IV Ceftriaxone as his WBC is improved today and he has been afebrile for >24 hours. His pain has also resolved as of today. He will be discharged home today with Cefdinir to treat his infection to follow up in 1-2 weeks for a repeat urine culture and to discuss the need for his left ESWL in the near future as his left ureteral stone is visible on KUB. He can resume regular activity, diet but he has no home medications to resume. Time spent discussing smoking cessation with patient: more than 10 minutes Status at Discharge Functional status at discharge: independent ambulation Time Spent with Patient Time attestation: Total time spent providing and/or coordinating discharge services: Time spent: Greater than 30 minutes Exam Const: General: cooperative and comfortable Resp: Effort & Inspection: normal respiratory effort Cardio: Rate: regular rate GI: GI Palp: Yes Soft to palpation and No Tenderness to palpation present (GI) : General: Yes no CVA tenderness Extrem: Right lower extremity: no edema Left lower extremity: no edema DS: Data Data Completed and Pending Labs on day of discharge: Labs from last 24 hours 06/04/22 06/04/22 06:08 06:08 WBC 14.6 H RBC 4.10 L Hgb 12.8 L Hct 38.5 L MCV 93.9 MCH 31.2 MCHC 33.2 RDW 12.3 Plt Count 180 MPV 11.2 H Sodium 133 L Potassium 3.2 L Chloride 98 Carbon Dioxide 30 Anion Gap 5 L BUN 8 L Creatinine 0.80 Estim Creat Clear Calc 108 Estimated GFR > 60 Glucose 101 Calcium 8.2 L Preliminary micro results at discharge 06/02/22 21:58 Blood Culture - Preliminary Blood 06/02/22 21:58 Blood Culture - Preliminary Blood Discharge Plan Discharge Attending physician on discharge: Salvador Russ Discharging Clinician: Aysha Rizvi Patient Disposition: Home, Self-Care Activity: may shower Diet: as tolerated Discharge Instructions: You will need to repeat your urine culture at our office in 1 week to ensure infection has resolved, Call for an appointment to our office at [facility]. ([phone]) You will then be set up to have a lithotripsy done on the left to remove your stone as an outpatient surgery in 2-3 weeks. Your stent will stay in place until we confirm passage of all stone particles with an X-Ray 2-4 weeks after your lithotripsy. You should expect blood in your urine, cloudy urine, and stent irritation especially with increased activity. If you develop a fever, severe pain or difficulty with urination, you should call the office or go to the ER. Finish all of your antibiotics. Patient Instructions: Antibiotic Form, How to Stop Smoking (GEN), Cigarette Smoking and Your Health (GEN) Stand Alone Forms: General Discharge Information Follow-up/Referrals: Kourtney,Trina Muñoz [Primary Care Provider] - Salvador Russ MD [Physician] - Discharge Medications: New hyoscyamine sulfate [Anaspaz] 0.125 mg Tablet,Disintegrating 0.125 mg PO Q4H PRN (Reason: Bladder Spasm) Qty: 20 0RF cefdinir 300 mg capsule 300 mg PO Q12H Qty: 20 0RF Date of admission: 06/03/22 19:52 Primary Ca
== END 2022-06-04 14:25 | disposition home or self-care (01) | DRG 463 ==
LOC: ANHED 07:13 → ANHSURGERY 07:29 → ANHED 07:30 → ANHSURGERY 07:30 → ANH3MEDSUR 13:34
PROVIDERS: Admitting Provider Urology; Emergency Provider Emergency Medicine; PCP Internal Medicine Infectious Disease; Visit Provider Nurse Practitioner Adult Health
PROC: 0T778DZ Dilation of Left Ureter with Intraluminal Device, Via Natural or Artificial Opening Endoscopic (ICD-10-PCS; CPT 52352; principal; 2022-06-01 08:00)
DX: N13.6 Pyonephrosis (principal); K51.90 Ulcerative colitis, unspecified, without complications; J45.909 Unspecified asthma, uncomplicated; T83.84XA Pain due to genitourinary prosthetic devices, implants and grafts, initial encounter; G89.18 Other acute postprocedural pain; B95.1 Streptococcus, group B, as the cause of diseases classified elsewhere; F17.210 Nicotine dependence, cigarettes, uncomplicated
CPT/HCPCS: 36415; 74018; 74177; 74420; 80048; 80053; 81001; 83605; 83690; 85025; 85027; 87040; 87077; 87086; 87088; 96361; 96365; 96366; 96374; 96375; 99285; A9270; C1758; C1769; C2617; G0378; G0379; J0690; J0696; J1100; J2270; J2405; J2704; J7030; J7120; J7121; Q9967